=== PATIENT | female | born 1985 | race Caucasian/White ===

== ENCOUNTER 2016-12-14 14:47 | Inpatient (IN) | payer OTHER ==
[~2016-12-14] VITALS: Ht 165.1 cm; Wt 65.6 kg
[~2016-12-14 14:47] MED LIST: BNT10 PO; DFL100 PO; HYDR-4383 PO; PRT40 PO
[2016-12-14] MEDS ORDERED: HYDROmorphone INJ 0.5 MG/0.5 ML SYR IV STA (16:46)
[2016-12-14] MEDS ORDERED: PROCHLORPERAZINE 5 MG/ML 2 ML VIAL IV STA (16:46)
[2016-12-14] MEDS ORDERED: SODIUM CHLORIDE 0.9% 1000ML 1,000 ML IV STA (16:46)
[2016-12-14] MEDS ORDERED: DiphenhydrAMINE HCL 50 MG/ML VIAL IV STA (16:46)
[2016-12-14] MEDS ORDERED: ONDANSETRON INJ 2 MG/ML 2 ML VIAL IV STA ×2 (16:46→20:00)
[2016-12-14] MEDS ORDERED: SODIUM CHLORIDE 0.9% 1000ML 2,000 ML IV STA (16:46)
[2016-12-14] MEDS ORDERED: DEXAMETHASONE SOD INJ 10 MG/ML VIAL IV ONE (17:00)
[2016-12-14 17:41] LABS: BASO % 0.2 %; BASO ABS # 0.01 K/uL (0-0.2); COMPLETE YES; HEMATOCRIT 41.1 % (37-47); IG% 0.2 %; LYMPH % 9.7 %; LYMPH ABS # 0.57 K/uL (1.2-3.4); MEAN CELL VOLUME 87.4 fL (80-100); MEAN CORPUSCULAR HGB CONC 34.3 g/dl (32-36); MONO % 1.9 %; PLATELET COUNT 304 K/uL (130-400); WHITE BLOOD COUNT 5.88 K/uL (4.8-10.8)
[2016-12-14 18:00] LABS: ALT/SGPT 21 U/L (12-78); AMYLASE 55 U/L (25-115); BLOOD UREA NITROGEN 9 mg/dl (7-18); CALCIUM 9.8 mg/dl (8.5-10.1); CARBON DIOXIDE 24 mmol/L (21-32); CHLORIDE 106 mmol/L (98-107); CREATININE 0.77 mg/dl (0.60-1.20); GLUCOSE 112 mg/dl (70-99); MAGNESIUM 1.7 mg/dl (1.8-2.4); POTASSIUM 3.4 mmol/L (3.5-5.1); SODIUM 141 mmol/L (136-145)
[2016-12-14 18:04] LABS: ALKALINE PHOSPHATASE 74 U/L (45-117); AST/SGOT 16 U/L (15-37)
[2016-12-14 18:09] LABS: PREG INTERNAL NEGATIVE QC NEG CLEAR BACKGROUND; PREG INTERNAL POSITIVE QC POS CONTROL LINE
[2016-12-14] MEDS ORDERED: FAMOTIDINE 20MG/102 ML D5W IV STA (18:13)
[2016-12-14] MEDS ORDERED: HYDROmorphone INJ 1 MG/ML SYR IV STA ×2 (18:13→20:00)
--- NOTE | 2016-12-14 18:32 | DIAGNOSTIC IMAGING REPORT ---
ABDOMEN 2VIEW W/PA CHEST RTN CLINICAL HISTORY: abd pain, n/v pain COMPARISON STUDY: 09/24/2016 FINDINGS: Diffuse interstitial change throughout both hemithoraces. Microcystic changes also have been described previously with all findings considered stable compared to the prior exam. There is no evidence for superimposed infiltrate. Bowel pattern is nonobstructive. Patient status post cholecystectomy. IMPRESSION: 1. Chronic interstitial change throughout both hemithoraces. No change from the prior study. 2. Nonobstructive bowel pattern. Electronically signed by: Kareem Berg M.D. 12/14/2016 6:31 PM Dictated Date/Time: 12/14/2016 6:28 PM
[2016-12-14 19:33] LABS: MANUAL MICROSCOPIC REQUIRED? YES; URINE APPEARANCE CLEAR (CLEAR); URINE COLOR YELLOW; URINE NITRITE NEG (NEG); URINE PH 8.5 (4.5-7.5); URINE SPECIFIC GRAVITY 1.015 (1.000-1.030); UROBILINOGEN NEG (NEG)
[2016-12-14 19:43] LABS: REVIEW REQ? NO; SULFASALICYLIC ACID NEG (NEG); URINE BILIRUBIN NEG (NEG)
[2016-12-14 19:45] LABS: URINE BACTERIA NEG (NEG)
[2016-12-14 19:46] LABS: URINE MUCUS PRESENT (NONE PRSENT)
[2016-12-14 19:51] LABS: BENZODIAZEPINE, URINE NEG (NEG); COCAINE,URINE NEG (NEG); PHENCYCLIDINE, URINE NEG (NEG)
--- NOTE | 2016-12-14 21:22 | DIAGNOSTIC IMAGING REPORT ---
ABDOMEN AND PELVIS CT WITHOUT CONTRAST CT DOSE: 704.59 mGycm HISTORY: Hematuria hematuria TECHNIQUE: Multiaxial CT images of the abdomen and pelvis were performed without the use of intravenous and oral contrast according to the standard department stone protocol. COMPARISON STUDY: 08/29/2016 FINDINGS: Chronic bibasilar interstitial changes are noted. Configuration of liver spleen and pancreas are unremarkable. Prior cholecystectomy. Nonobstructing renal calcifications unchanged. No evidence for an obstructing urinary tract calculus. Nonobstructive bowel pattern. Normal appendix. Complex 3.5 cm right ovarian cyst. Uterus is anteflexed. Bladder is midline. There are no contained bladder calcifications. IMPRESSION: 1. Several nonobstructing renal calcifications bilaterally. 2. Nonobstructive bowel pattern. 3. 3.5 cm complex cyst of the right ovary. 4. Chronic bibasilar interstitial change. Electronically signed by: Kareem Berg M.D. 12/14/2016 9:21 PM Dictated Date/Time: 12/14/2016 9:17 PM
--- NOTE | 2016-12-14 22:08 | EMERGENCY ROOM VISIT NOTE ---
History First contact with patient: 16:31 Chief Complaint: ABDOMINAL PAIN Stated Complaint: ABD. PAIN, VOMITING, NEAR SYNCOPE Nursing Triage Summary: pt c/o abd pain started this am vomiting has been here for nessa waterman in past and was admitted History of Present Illness Patient is a 31-year-old white female who presents to the emergency department for evaluation of abdominal pain, nausea and vomiting that began acutely this morning. 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 She follows with pulmonology in [place]. Patient presents the emergency department complaining of the abrupt onset of diffuse abdominal pain. She reports associated nausea and multiple episodes of vomiting and now dry heaves. She was seen here last August for similar symptoms. She had multiple emergency department visits before she was admitted. She underwent a thorough workup at that time and was seen by gastroenterology in the hospital. She states that the medications that she was discharged to home on including Protonix and Bentyl "made her sick" and she is not presently taking anything for her present symptoms. She states that this is exactly the same as how she felt when she was in the emergency department last year. She reports severe stomach pain that she rates a 10/10. She reports that her menses are irregular and she last had a period about 2 weeks ago. She states that it was very heavy but she has not had a period for about 2 months prior. She actually reports feeling constipated and tried taking stool softeners but vomited them up. She has not experienced any diarrhea. She has not had a fever. She denies any sick contacts. Review of Systems Review of systems as per HPI. All other systems reviewed were negative. 10 systems reviewed. 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 See Problem List. Family History Diabetes mellitus FATHER Hypertension Kidney disease Kidney stones Social History Smoking Status: Current Every Day Smoker Alcohol Use: none Drug Use: none Marital Status: Housing Status: lives with family Occupation Status: unemployed Current/Historical Medications Scheduled Dicyclomine HCl (Dicyclomine HCl), 10 MG PO BID Pantoprazole (Pantoprazole Sodium), 40 MG PO BID Scheduled PRN Hydrocodone/Acetaminophen (Sunspot 10/325 Tab), 1 TAB PO TID PRN for Pain Allergies Coded Allergies: No Known Allergies (Unverified , 12/14/16) Physical Exam Vital Signs Date Time Temp Pulse Resp B/P Pulse Ox O2 Delivery O2 Flow Rate FiO2 12/14/16 22:39 74 16 117/74 99 12/14/16 20:16 54 16 117/78 98 12/14/16 19:00 74 14 110/62 97 12/14/16 17:00 124 26 124/84 12/14/16 15:37 125 20 132/90 96 Room Air 12/14/16 14:54 37.0 85 22 111/90 98 Room Air Physical Exam CONSTITUTIONAL: Patient is a thin, 31-year-old white female who is awake and alert and rolling around on the gurney in moderate distress due to her stated complaints. EYES: Pupils equal, round, reactive to light and accommodation. EOMs intact without nystagmus. Sclera are anicteric. ENT: Tympanic membranes intact, with normal landmarks. External canals are clear. Oral and nasopharynx are clear. Mucous membranes are moist, no lesions , tongue and gums appear normal. NECK: No bruits auscultated. Supple without lymphadenopathy. No thyromegaly. No meningeal signs. Full active range of motion without discomfort. CARDIOVASCULAR: Regular rate and rhythm, with normal S1 and S2, no murmur or gallop or rub is heard. No carotid bruits auscultated. No JVD. Peripheral pulses easy to palpable. RESPIRATORY: Breath sounds equal and clear to auscultation without wheezes, rales, or rhonchi heard. Full and equal chest expansion without accessory muscle use or retractions. GI: Bowel sounds are present. Abdomen is soft and diffusely tender to palpation , without localized tenderness. No guarding or rebound. No organomegaly. No pulsatile masses. MUSCULOSKELETAL: Full range of motion of extremities x 4 with good strength. No cyanosis, edema, joint tenderness or swelling. No deformity. INTEGUMENTARY: No lesions or rash, normal skin turgor. NEUROLOGICAL: Alert, oriented, and cooperative. Cranial nerves, sensation and strength grossly intact. Pupils round, equal, and react to light, EOMs are full. LYMPH: No lymphadenopathy. Medical Decision & Procedures ER Provider Diagnostic Interpretation: ABDOMEN AND PELVIS CT WITHOUT CONTRAST CT DOSE: 704.59 mGycm HISTORY: Hematuria hematuria TECHNIQUE: Multiaxial CT images of the abdomen and pelvis were performed without the use of intravenous and oral contrast according to the standard department stone protocol. COMPARISON STUDY: 08/29/2016 FINDINGS: Chronic bibasilar interstitial changes are noted. Configuration of liver spleen and pancreas are unremarkable. Prior cholecystectomy. Nonobstructing renal calcifications unchanged. No evidence for an obstructing urinary tract calculus. Nonobstructive bowel pattern. Normal appendix. Complex 3.5 cm right ovarian cyst. Uterus is anteflexed. Bladder is midline. There are no contained bladder calcifications. IMPRESSION: 1. Several nonobstructing renal calcifications bilaterally. 2. Nonobstructive bowel pattern. 3. 3.5 cm complex cyst of the right ovary. 4. Chronic bibasilar interstitial change. ABDOMEN 2VIEW W/PA CHEST RTN CLINICAL HISTORY: abd pain, n/v pain COMPARISON STUDY: 09/24/2016 FINDINGS: Diffuse interstitial change throughout both hemithoraces. Microcystic changes also have been described previously with all findings considered stable compared to the prior exam. There is no evidence for superimposed infiltrate. Bowel pattern is nonobstructive. Patient status post cholecystectomy. IMPRESSION: 1. Chronic interstitial change throughout both hemithoraces. No change from the prior study. 2. Nonobstructive bowel pattern. Laboratory Results 12/14/16 17:31 Red Blood Count 4.70, Mean Corpuscular Volume 87.4, Mean Corpuscular Hemoglobin 30.0, Mean Corpuscular Hemoglobin Concent 34.3, Mean Platelet Volume 10.0, Neutrophils (%) (Auto) 88.0, Lymphocytes (%) (Auto) 9.7, Monocytes (%) (Auto) 1.9, Eosinophils (%) (Auto) 0.0, Basophils (%) (Auto) 0.2, Neutrophils # (Auto) 5.18, Lymphocytes # (Auto) 0.57, Monocytes # (Auto) 0.11, Eosinophils # (Auto) 0.00, Basophils # (Auto) 0.01 12/14/16 17:31 Test 12/14/16 17:31 12/14/16 19:00 12/14/16 23:28 White Blood Count 5.88 K/uL (4.8-10.8) Red Blood Count 4.70 M/uL (4.2-5.4) Hemoglobin 14.1 g/dL (12.0-16.0) Hematocrit 41.1 % (37-47) Mean Corpuscular Volume 87.4 fL (80-100) Mean Corpuscular Hemoglobin 30.0 pg (25-34) Mean Corpuscular Hemoglobin Concent 34.3 g/dl (32-36) Platelet Count 304 K/uL (130-400) Mean Platelet Volume 10.0 fL (7.4-10.4) Neutrophils (%) (Auto) 88.0 % Lymphocytes (%) (Auto) 9.7 % Monocytes (%) (Auto) 1.9 % Eosinophils (%) (Auto) 0.0 % Basophils (%) (Auto) 0.2 % Neutrophils # (Auto) 5.18 K/uL (1.4-6.5) Lymphocytes # (Auto) 0.57 K/uL (1.2-3.4) Monocytes # (Auto) 0.11 K/uL (0.11-0.59) Eosinophils # (Auto) 0.00 K/uL (0-0.5) Basophils # (Auto) 0.01 K/uL (0-0.2) RDW Standard Deviation 42.8 fL (36.4-46.3) RDW Coefficient of Variation 13.3 % (11.5-14.5) Immature Granulocyte % (Auto) 0.2 % Immature Granulocyte # (Auto) 0.01 K/uL (0.00-0.02) Anion Gap 11.0 mmol/L (3-11) Est Creatinine Clear Calc Drug Dose 97.0 ml/min Estimated GFR () 120.9 Estimated GFR (Non- 104.3 BUN/Creatinine Ratio 11.0 (10-20) Calcium Level 9.8 mg/dl (8.5-10.1) Magnesium Level 1.7 mg/dl (1.8-2.4) Total Bilirubin 0.3 mg/dl (0.2-1) Direct Bilirubin < 0.1 mg/dl (0-0.2) Aspartate Amino Transf (AST/SGOT) 16 U/L (15-37) Alanine Aminotransferase (ALT/SGPT) 21 U/L (12-78) Alkaline Phosphatase 74 U/L (45-117) Total Protein 8.6 gm/dl (6.4-8.2) Albumin 4.6 gm/dl (3.4-5.0) Amylase Level 55 U/L (25-115) Lipase 137 U/L (73-393) Human Chorionic Gonadotropin, Qual NEG (NEG) Urine Color YELLOW Urine Appearance CLEAR (CLEAR) Urine pH 8.5 (4.5-7.5) Urine Specific [place] 1.015 (1.000-1.030) Urine Protein NEG (NEG) Urine Glucose (UA) NEG (NEG) Urine Ketones 3+ (NEG) Urine Occult Blood 2+ (NEG) Urine Nitrite NEG (NEG) Urine Bilirubin NEG (NEG) Urine Urobilinogen NEG (NEG) Urine Leukocyte Esterase NEG (NEG) Urine RBC 10-30 /hpf (0-4) Urine WBC 1-5 /hpf (0-5) Urine Epithelial Cells >30 /lpf (0-5) Urine Bacteria NEG (NEG) Urine Mucus PRESENT (NONE PRSENT) Urine Opiates Screen POS (NEG) Urine Methadone, Qualitative NEG (NEG) Urine Barbiturates NEG (NEG) Urine Phencyclidine (PCP) Level NEG (NEG) Ur Amphetamine/Methamphetamine NEG (NEG) MDMA (Ecstasy) Screen NEG (NEG) Urine Benzodiazepines Screen NEG (NEG) Urine Cocaine Metabolite NEG (NEG) Urine Marijuana (THC) NEG (NEG) Medications Administered Medications (Trade) Dose Ordered Sig/Husam Route Start Time Stop Time Status Last Admin Dose Admin Sodium Chloride 2,000 ml @ 999 mls/hr Q2H1M STAT IV 12/14/16 16:46 12/14/16 18:46 DC 12/14/16 17:07 999 MLS/HR Sodium Chloride (Nss 1000ml) 1,000 ml @ 250 mls/hr Q4H STAT IV 12/14/16 16:46 12/14/16 20:45 DC 12/14/16 18:06 250 MLS/HR Prochlorperazine Edisylate (Compazine Inj) 10 mg NOW STAT IV 12/14/16 16:46 12/14/16 16:49 DC 12/14/16 17:07 10 MG Diphenhydramine HCl (Benadryl Inj) 50 mg NOW STAT IV 12/14/16 16:46 12/14/16 16:49 DC 12/14/16 17:07 50 MG Ondansetron HCl (Zofran Inj) 4 mg NOW STAT IV 12/14/16 16:46 12/14/16 16:50 DC 12/14/16 17:06 4 MG Dexamethasone Sodium Phosphate (Decadron Inj) 10 mg NOW ONCE IV 12/14/16 17:00 12/14/16 17:01 DC 12/14/16 17:07 10 MG Hydromorphone HCl (Dilaudid Inj) 0.5 mg NOW STAT IV 12/14/16 16:46 12/14/16 16:50 DC 12/14/16 17:10 0.5 MG Hydromorphone HCl (Dilaudid Inj) 1 mg NOW STAT IV 12/14/16 18:13 12/14/16 18:16 DC 12/14/16 18:28 1 MG Famotidine (Pepcid 20mg/100 ml) 20 mg ONE STAT IV 12/14/16 18:13 12/14/16 18:16 DC 12/14/16 18:29 20 MG Ondansetron HCl (Zofran Inj) 4 mg NOW STAT IV 12/14/16 20:00 12/14/16 20:01 DC 12/14/16 20:14 4 MG Hydromorphone HCl (Dilaudid Inj) 1 mg NOW STAT IV 12/14/16 20:00 12/14/16 20:01 DC 12/14/16 20:15 1 MG ED Course The patient was seen and evaluated as above. Her old records were reviewed, including her admission from last year. I am familiar with from prior ED visits. IV access was obtained and laboratory studies were collected. Patient was hydrated with normal saline solution. She was initially medicated with Compazine 10 mg IV, Benadryl 50 mg IV, Zofran 4 mg IV, Decadron 10 mg IV and Dilaudid 0.5 mg IV. She later complained of ongoing discomfort and was given Pepcid 20 mg IV and Dilaudid 1 mg IV. CBC with differential, BMP, magnesium, LFTs, amylase, lipase, urinalysis and urine test were ordered. Acute abdominal series was obtained. Laboratory studies revealed a white count of 5800 with no left shift or bandemia. H&H 14 and 41. Platelet count 304,000. Electrolytes revealed a sodium of 141, potassium 3.4, chloride 106, carbon dioxide 24, BUN 9 and creatinine 0.77. Magnesium is 1.7. LFTs, amylase and lipase are within normal limits. Serum hCG is negative. Urinalysis notes 3+ ketones, 2+ occult blood and 10-30 rbc's with greater than 30 epithelial cells. There are no other indicators for infection including white blood cells, leukocyte esterase or nitrates. No bacteria. Urine toxicology screen is positive for opioids, consistent with her hydrocodone use. The patient was reassessed and made aware of the results of all of her laboratory and diagnostic imaging studies. Her mother was present at the bedside as well. She continued to note pain and return of her nausea. She was given Dilaudid 1 mg IV and Zofran 4 mg IV. Given the hematuria, CT scan of the abdomen and pelvis without contrast was ordered. CT noted a right ovarian cyst , otherwise no acute abdominal pathology. The patient was reassessed. She appeared to be resting comfortably on the gurney, and reported feeling tired from the medication. The results of her CT scan were discussed with her and her mother. Treatment options were discussed. The patient became tearful and began to report worsening pain. She states that she does not feel well enough to go home. She is afraid if she does she will have to come back like she did last year. Patient was reviewed with the refractory manager and consultation was placed with the [facility] hospitalist service. Patient was reviewed with Dr. Pike who will evaluate her for further care in the hospital. Medical Decision Differential diagnoses entertained included gastritis, esophagitis, peptic ulcer disease, pancreatitis, choledocholithiasis, bowel obstruction, perforation , medication side effect, cyclic vomiting syndrome, UTI, pyelonephritis, ovarian cyst, ovarian torsion, , ectopic , among others. [place] Drug Monitoring Program Search Results: patient reviewed within database Drug Monitoring Findings: Receives regular Sunspot prescriptions from pain management as discussed. Impression Primary Impression: Intractable abdominal pain Additional Impressions: Vomiting Right ovarian cyst Departure Information Referrals No Doctor, Assigned (PCP) Patient Instructions [facility] Problem Qualifiers
--- NOTE | 2016-12-14 23:06 | History and Physical ---
History & Physical Date & Time of Service: Dec 14, 2016 at 22:51 Chief Complaint: Abd. Pain, Vomiting, Near Syncope Primary Care Physician: No Doctor, Assigned History of Present Illness Source: patient 31 y/o F Hx Langerhan's Histiocytosis affecting her lungs only, renal calculi, chronic lower back and abdominal pain of unknown etiology. She is narcotic- dependent and has presented multiple times with intractable lower abdominal pain , and intractable N/V which she has had for the past 2 days. She denies a fever , CP, SOB, dysuria. The pain is largely in her lower abdomen and back, described as persistent and 8/10. She received several doses of narcotics and antiemetics in the ER without resolution. She also describes gross hematuria for a few weeks. She had her last menstrual period 2 weeks prior. Past Medical/Surgical History Medical Problems: (1) Anxiety and depression Status: Chronic (2) Chronic gastritis Status: Chronic (3) Chronic low back pain Status: Chronic (4) Duodenal ulcer disease Status: Chronic (5) Kidney stones Status: Resolved (6) Langerhans cell histiocytosis Status: Chronic (7) Langerhans cell histiocytosis of lung Status: Chronic (8) Peptic ulcer disease Status: Chronic (9) Reflux esophagitis Status: Chronic 10) Narcotic-dependence 11) Tobacco abuse Surgical Problems: (1) H/O esophagogastroduodenoscopy Permanent Comment: 03/10/16 at [facility]- chronic gastritis, grade A reflux esophagitis, acute duodenitis with superficial ulceration Status: Chronic (2) History of section Status: Resolved (3) History of cholecystectomy Status: Resolved (4) History of lung biopsy Status: Chronic (5) History of tubal ligation Status: Resolved (6) S/P section Status: Chronic (7) S/P cholecystectomy Status: Chronic Family History Diabetes mellitus FATHER Hypertension Kidney disease Kidney stones Social History Smoking Status: Current Every Day Smoker Drug Use: none Marital Status: Housing status: lives with family Occupational Status: unemployed Allergies Coded Allergies: No Known Allergies (Unverified , 12/14/16) Home Medications Scheduled Dicyclomine HCl (Dicyclomine HCl), 10 MG PO BID Pantoprazole (Pantoprazole Sodium), 40 MG PO BID Scheduled PRN Hydrocodone/Acetaminophen ([place] 10/325 Tab), 1 TAB PO TID PRN for Pain Review of Systems Constitutional: No chills, No fever, No sweats Eyes: No eye pain, No worsening of vision ENT: No hearing loss, No nasal symptoms, No unusual epistaxis Respiratory: No cough, No sputum, No wheezing Cardiovascular: No PND, No chest pain, No orthopnea Abdomen: + nausea, + pain, + vomiting, No constipation, No diarrhea Musculoskeletal: + joint pain, + muscle pain Genitourinary - Female: + hematuria, No dysuria, No urinary frequency, No urinary urgency Neurologic: No memory loss, No paralysis, No weakness Psychiatric: + depression symptoms Endocrine: No fatigue Hematologic / Lymphatic: No abnormal bleeding/bruising Integumentary: No rash Allergic / Immunologic: No environmental allergies Physical Exam Vital Signs Date Time Temp Pulse Resp B/P Pulse Ox O2 Delivery O2 Flow Rate FiO2 12/14/16 22:39 74 16 117/74 99 12/14/16 20:16 54 16 117/78 98 12/14/16 19:00 74 14 110/62 97 12/14/16 17:00 124 26 124/84 12/14/16 15:37 125 20 132/90 96 Room Air 12/14/16 14:54 37.0 85 22 111/90 98 Room Air General Appearance: WD/WN, no apparent distress Head: normocephalic, atraumatic Eyes: normal inspection, EOMI ENT: normal ENT inspection, pharynx normal Neck: supple, no JVD Respiratory/Chest: chest non-tender, lungs clear, normal breath sounds Cardiovascular: regular rate, rhythm, no edema, no gallop Back: normal inspection, no CVA tenderness Extremities/Musculoskelatal: normal inspection, no calf tenderness, normal capillary refill, no pedal edema, normal range of motion Neurologic/Psych: insurance risk manager II-XII nml as tested, no motor/sensory deficits, alert, normal mood/affect, normal reflexes, oriented x 3 Skin: normal color, warm/dry, no rash Diagnostics Laboratory Results Results Past 24 Hours Test 12/14/16 17:31 12/14/16 19:00 Range/Units White Blood Count 5.88 4.8-10.8 K/uL Red Blood Count 4.70 4.2-5.4 M/uL Hemoglobin 14.1 12.0-16.0 g/dL Hematocrit 41.1 37-47 % Mean Corpuscular Volume 87.4 80-100 fL Mean Corpuscular Hemoglobin 30.0 25-34 pg Mean Corpuscular Hemoglobin Concent 34.3 32-36 g/dl Platelet Count 304 130-400 K/uL Mean Platelet Volume 10.0 7.4-10.4 fL Neutrophils (%) (Auto) 88.0 % Lymphocytes (%) (Auto) 9.7 % Monocytes (%) (Auto) 1.9 % Eosinophils (%) (Auto) 0.0 % Basophils (%) (Auto) 0.2 % Neutrophils # (Auto) 5.18 1.4-6.5 K/uL Lymphocytes # (Auto) 0.57 1.2-3.4 K/uL Monocytes # (Auto) 0.11 0.11-0.59 K/uL Eosinophils # (Auto) 0.00 0-0.5 K/uL Basophils # (Auto) 0.01 0-0.2 K/uL RDW Standard Deviation 42.8 36.4-46.3 fL RDW Coefficient of Variation 13.3 11.5-14.5 % Immature Granulocyte % (Auto) 0.2 % Immature Granulocyte # (Auto) 0.01 0.00-0.02 K/uL Sodium Level 141 136-145 mmol/L Potassium Level 3.4 3.5-5.1 mmol/L Chloride Level 106 98-107 mmol/L Carbon Dioxide Level 24 21-32 mmol/L Anion Gap 11.0 3-11 mmol/L Blood Urea Nitrogen 9 7-18 mg/dl Creatinine 0.77 0.60-1.20 mg/dl Est Creatinine Clear Calc Drug Dose 97.0 ml/min Estimated GFR () 120.9 Estimated GFR (Non- 104.3 BUN/Creatinine Ratio 11.0 10-20 Random Glucose 112 70-99 mg/dl Calcium Level 9.8 8.5-10.1 mg/dl Magnesium Level 1.7 1.8-2.4 mg/dl Total Bilirubin 0.3 0.2-1 mg/dl Direct Bilirubin < 0.1 0-0.2 mg/dl Aspartate Amino Transf (AST/SGOT) 16 15-37 U/L Alanine Aminotransferase (ALT/SGPT) 21 12-78 U/L Alkaline Phosphatase 74 45-117 U/L Total Protein 8.6 6.4-8.2 gm/dl Albumin 4.6 3.4-5.0 gm/dl Amylase Level 55 25-115 U/L Lipase 137 73-393 U/L Human Chorionic Gonadotropin, Qual NEG NEG Urine Color YELLOW Urine Appearance CLEAR CLEAR Urine pH 8.5 4.5-7.5 Urine Specific [place] 1.015 1.000-1.030 Urine Protein NEG NEG Urine Glucose (UA) NEG NEG Urine Ketones 3+ NEG Urine Occult Blood 2+ NEG Urine Nitrite NEG NEG Urine Bilirubin NEG NEG Urine Urobilinogen NEG NEG Urine Leukocyte Esterase NEG NEG Urine RBC 10-30 0-4 /hpf Urine WBC 1-5 0-5 /hpf Urine Epithelial Cells >30 0-5 /lpf Urine Bacteria NEG NEG Urine Mucus PRESENT NONE PRSENT Urine Opiates Screen POS NEG Urine Methadone, Qualitative NEG NEG Urine Barbiturates NEG NEG Urine Phencyclidine (PCP) Level NEG NEG Ur Amphetamine/Methamphetamine NEG NEG MDMA (Ecstasy) Screen NEG NEG Urine Benzodiazepines Screen NEG NEG Urine Cocaine Metabolite NEG NEG Urine Marijuana (THC) NEG NEG Diagnostic Radiology CT abdomen 1. Several nonobstructing renal calcifications bilaterally. 2. Nonobstructive bowel pattern. 3. 3.5 cm complex cyst of the right ovary. 4. Chronic bibasilar interstitial change. Impression Assessment and Plan 31 y/o F Hx Langertong's Histiocytosis affecting her lungs only, renal calculi, chronic lower back and abdominal pain of unknown etiology. She is narcotic- dependent and has presented multiple times with intractable lower abdominal pain , and intractable N/V which she has had for the past 2 days. She denies a fever , CP, SOB, dysuria. The pain is largely in her lower abdomen and back, described as persistent and 8/10. She received several doses of narcotics and antiemetics in the ER without resolution. She also describes gross hematuria for a few weeks. She had her last menstrual period 2 weeks prior. 1) Intractable nausea, vomiting - placed on scheduled Reglan and Zofran for breakthrough - IVF - NPO 2) Intractable abdominal pain - Converted home dose of [place] - pain is acute on chronic without etiology 3) Hematuria - She has several renal calculi without evidence of obstruction or infection - she should likely be referred to a urologist on discharge 4) Langerhan's - followed at [facility] 5) HypoMg, HypoK - stat replacement ordered 6) Narcotic dependence - I can see no clear reason for this young, essentially healthy individual to continue narcotic use and in fact this may be detrimental. This should likely be addressed prior to D/C. Per review of pharmacy records, she has a standing monthly Rx for 90 10.325 [place] so that no additional should be prescribed on D/C. 7) Tobacco abuse - Cessation advice prior to D/C - does not necessarily show interest. Full code - SCDs due to hematuria Total time for this admit including review of labs, meds, imaging - discussion with ER attending and pt. Level of Care Med/Surg Resuscitation Status FULL RESUSCITATION VTE Prophylaxis Given or contraindicated: SCD's
[2016-12-14] MEDS ORDERED: ACETAMINOPHEN 325 MG TAB PO PRN (23:30)
[2016-12-14] MEDS ORDERED: ZOLPIDEM TARTRATE 5 MG TAB PO PRN (23:30)
[2016-12-14] MEDS ORDERED: MoRPHine SULFATE 4 MG/ML 1 ML CARP\\VIAL IV PRN (23:30)
[2016-12-14] MEDS ORDERED: MAGNESIUM HYDROXIDE SUSP 30 ML UDC PO PRN (23:30)
[2016-12-14] MEDS ORDERED: POLYETHYLENE (MIRALAX) 17 GM PACK PO PRN (23:30)
[2016-12-14] MEDS ORDERED: MAGNESIUM SULFATE 1GM / D5W 1 GM in PREMIXED IN D5W 100 ML IV STA (23:33)
[2016-12-15] MEDS ORDERED: MAGNESIUM SULFATE 1GM / D5W 1 GM BAG IV SCH
[2016-12-15 00:41] VITALS: BP 130/67; PULSE 61; TEMP 37.5; O2SAT 94; Ht 165.1 cm; Wt 65.6 kg
[2016-12-15] MEDS ORDERED: IV FLUIDS COMPLETED PRN (01:30)
[2016-12-15] MEDS: ONDANSETRON INJ 2 MG/ML 2 ML VIAL IV PRN ×2 (01:34→13:43)
[2016-12-15] MEDS: D5NSS + 20MEQ KCL 1,000 ML IV SCH ×4 (02:09→22:06)
[2016-12-15] MEDS: POTASSIUM CHLR 10 MEQ / WTR 10 MEQ in PREMIXED WATER 100 ML IV SCH ×2 (02:09→03:22)
[2016-12-15] MEDS: METOCLOPRAMIDE HCL INJ 5 MG/ML 2 ML VIAL IV SCH ×3 (03:22→18:26)
[2016-12-15] MEDS: ALUMINUM/MAGNESIUM/SIMETH (MAALOX MAX) 30 ML UDC PO PRN (04:40)
[2016-12-15 07:13] LABS: BUN/CREATININE RATIO 13.4 (10-20); CREATININE 0.64 mg/dl (0.60-1.20); MAGNESIUM 2.2 mg/dl (1.8-2.4); POTASSIUM 3.7 mmol/L (3.5-5.1)
[2016-12-15 07:19] VITALS: BP 114/73; PULSE 99; TEMP 37.8; O2SAT 98
[2016-12-15 07:55] VITALS: TEMP 37
[2016-12-15] MEDS ORDERED: MoRPHine SULFATE 4 MG/ML 1 ML CARP\\VIAL ONE (09:27)
[2016-12-15] MEDS: DICYCLOMINE HCL 10 MG CAP PO SCH ×2 (10:04→22:05)
[2016-12-15] MEDS: PANTOprazole SOD 40 MG TAB PO SCH ×2 (10:05→22:05)
[2016-12-15] MEDS ORDERED: MoRPHine SULFATE 4 MG/ML 1 ML CARP\\VIAL IV PRN (12:00)
[2016-12-15] MEDS: MoRPHine SULFATE 4 MG/ML 1 ML CARP\\VIAL IV PRN ×4 (13:44→22:06)
--- NOTE | 2016-12-15 14:11 | Family Medicine Progress Note ---
Progress Note Date of Service Dec 15, 2016. Subjective Pt evaluation today including: conversation w/ patient, physical exam, chart review, lab review, review of studies Pain: 05/07 Voiding: no voiding problems Patient has ongoing pain We did discuss that at [facility] the patient does have this pain after every meal but it is usually very limited however this is now her second bout of acute on chronic abd pain requiring admission They did discuss a scope however she stated that it never was done and she would like that if possible Hematuria is ongoing but now light pink in colour Constitutional: No fever Eyes: No worsening of vision ENT: No hearing loss Respiratory: No cough, No dyspnea on exertion, No shortness of breath, No sputum, No wheezing Cardiovascular: No chest pain Abdomen: + pain, No constipation, No diarrhea, No nausea, No vomiting Musculoskeletal: No joint pain, No muscle pain, No swelling Female : + hematuria, No dysuria Neurologic: No balance problems, No weakness Psychiatric: + anxiety Endo: No fatigue Medications Medications Administered Medications (Trade) Dose Ordered Sig/Husam Route Start Time Stop Time Status Last Admin Dose Admin Sodium Chloride 2,000 ml @ 999 mls/hr Q2H1M STAT IV 12/14/16 16:46 12/14/16 18:46 DC 12/14/16 17:07 999 MLS/HR Sodium Chloride (Nss 1000ml) 1,000 ml @ 250 mls/hr Q4H STAT IV 12/14/16 16:46 12/14/16 20:45 DC 12/14/16 18:06 250 MLS/HR Prochlorperazine Edisylate (Compazine Inj) 10 mg NOW STAT IV 12/14/16 16:46 12/14/16 16:49 DC 12/14/16 17:07 10 MG Diphenhydramine HCl (Benadryl Inj) 50 mg NOW STAT IV 12/14/16 16:46 12/14/16 16:49 DC 12/14/16 17:07 50 MG Ondansetron HCl (Zofran Inj) 4 mg NOW STAT IV 12/14/16 16:46 12/14/16 16:50 DC 12/14/16 17:06 4 MG Dexamethasone Sodium Phosphate (Decadron Inj) 10 mg NOW ONCE IV 12/14/16 17:00 12/14/16 17:01 DC 12/14/16 17:07 10 MG Hydromorphone HCl (Dilaudid Inj) 0.5 mg NOW STAT IV 12/14/16 16:46 12/14/16 16:50 DC 12/14/16 17:10 0.5 MG Hydromorphone HCl (Dilaudid Inj) 1 mg NOW STAT IV 12/14/16 18:13 12/14/16 18:16 DC 12/14/16 18:28 1 MG Famotidine (Pepcid 20mg/100 ml) 20 mg ONE STAT IV 12/14/16 18:13 12/14/16 18:16 DC 12/14/16 18:29 20 MG Ondansetron HCl (Zofran Inj) 4 mg NOW STAT IV 12/14/16 20:00 12/14/16 20:01 DC 12/14/16 20:14 4 MG Hydromorphone HCl (Dilaudid Inj) 1 mg NOW STAT IV 12/14/16 20:00 12/14/16 20:01 DC 12/14/16 20:15 1 MG Dicyclomine HCl (Bentyl Cap) 10 mg BID PO 12/15/16 09:00 01/14/17 08:59 12/15/16 10:04 10 MG Pantoprazole Sodium (Protonix Tab) 40 mg BID PO 12/15/16 09:00 01/14/17 08:59 12/15/16 10:05 40 MG Morphine Sulfate (MoRPHine SULFATE INJ) 4 mg Q8H PRN IV 12/14/16 23:30 12/15/16 08:58 DC 12/15/16 01:34 4 MG Metoclopramide HCl (Reglan Inj) 5 mg Q8H IV 12/15/16 02:00 01/14/17 01:59 12/15/16 09:33 5 MG Al Hydrox/Mg Hydrox/Simethicone (Maalox Max Susp) 15 ml Q4H PRN PO 12/14/16 23:30 01/13/17 23:29 12/15/16 04:40 15 ML Ondansetron HCl 4 mg 4 mg Q6H PRN IV 12/14/16 23:30 01/13/17 23:29 12/15/16 13:43 4 MG Potassium Chloride/Dextrose/ Sod Cl 1,000 ml @ 150 mls/hr Q6H40M IV 12/15/16 02:15 01/14/17 02:14 12/15/16 09:33 150 MLS/HR Potassium Chloride/Prmx (Kcl 10 Meq / Wtr/Premixed Water) 100 ml @ 100 mls/hr Q1H IV 12/15/16 02:00 12/15/16 03:59 DC 12/15/16 03:22 100 MLS/HR Magnesium Sulfate (Magnesium Sulfate) 1 gm TODAY@0000 IV 12/15/16 00:00 12/15/16 02:00 DC 12/15/16 00:20 1 GM Morphine Sulfate (MoRPHine SULFATE INJ) 4 mg Q2H PRN IV 12/15/16 12:00 12/29/16 11:59 12/15/16 13:44 4 MG Morphine Sulfate (MoRPHine SULFATE INJ) 4 mg STK-MED ONCE .ROUTE 12/15/16 09:27 12/15/16 09:31 DC 12/15/16 09:33 4 MG Objective Vital Signs Date Time Temp Pulse Resp B/P Pulse Ox O2 Delivery O2 Flow Rate FiO2 12/15/16 07:55 Room Air 12/15/16 07:55 37.0 12/15/16 07:19 37.8 99 16 114/73 98 Room Air 12/15/16 00:41 37.5 61 20 130/67 94 Room Air 12/15/16 00:30 Room Air 12/15/16 00:21 94 18 142/80 94 12/14/16 22:39 74 16 117/74 99 12/14/16 20:16 54 16 117/78 98 12/14/16 19:00 74 14 110/62 97 12/14/16 17:00 124 26 124/84 12/14/16 15:37 125 20 132/90 96 Room Air 12/14/16 14:54 37.0 85 22 111/90 98 Room Air Physical Exam General Appearance: WD/WN, no apparent distress Assessment and Plan This is a 31 yo f with a 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 She is narcotic-dependent and has presented multiple times with intractable lower abdominal pain, and intractable N/V which she has had for 2 days prior to admission. She was also suffering from hematuria which she states she will gets occasionally and will worsen when she strains. Acute on chronic abdominal pain of unknown etiology; intractable N&V - Morphine 4 mg q2 h - Zofran for nausea and scheduled Reglan - IVF and NPO - GI consult Hematuria possibly secondary to nephrolithiasis - consult urology - follow bmp hypomagnesemia, hypokalemia replete prn Narcotic dependence PDMP reviewed - approx one rx for narcotics/ month - no rx on d/c Tobacco abuse - continue to encourage d/c tobacco use Resident Physician Supervision Note: I interviewed and examined the patient. Discussed with Dr. Devi and agree with findings and plan as documented in the note. Any exceptions or clarifications are listed here: None Documented By: Felice Mc feeling aboutthe same. saw w GI - for EGD tomorrow vitals noted, abd soft epigastric ttp no guarding no rebound epigastric pain, nausea - ddx being viral GE (since acute onset, not been chronic since last) vs gastritis/stomach pathology -EGD tomororw, continue supportive care, otherwise as above Continued [facility] stay due to: other Discharge planning: uncertain
[2016-12-15 15:10] VITALS: BP 112/64; PULSE 61; TEMP 36.9; O2SAT 98
[2016-12-15] MEDS ORDERED: NURSING VERBAL MED ORDER PRN (16:45)
[2016-12-15] MEDS: LORAZEPAM 0.5 MG TAB PO PRN ×2 (16:49→22:06)
--- NOTE | 2016-12-15 17:54 | GASTROINTESTINAL CONSULTATION ---
DATE OF CONSULTATION: 12/15/2016 REASON FOR EVALUATION: Epigastric pain, nausea, and vomiting. HISTORY OF PRESENT ILLNESS: The patient is a 31-year-old who was hospitalized previously in August with similar symptoms. The patient reports at this time she woke up at 3 in the morning with severe epigastric abdominal pain which she rated as a 10/10. This was associated with nausea and vomiting. The night before, the patient was having some problems with constipation and eventually passed a hard stool, was associated with some bright red bleeding probably hemorrhoidal. The patient did have an EGD in [place] in February that showed some mild esophagitis and gastritis but no other abnormalities. She does take chronic narcotics for back pain associated with her Langerhans histiocytosis. During her last hospitalization, the patient underwent a stool test for rotavirus, C. diff, fecal leukocytes, routine bacterial pathogens, Giardia, all of which were negative. Stool for H. pylori was negative and her tissue transglutaminase for celiac disease was negative. PAST MEDICAL AND SURGICAL HISTORY: Remarkable for Langerhans histiocytosis predominantly involving the lungs. She has some anxiety, chronic low back pain, kidney stones. She has had a cholecystectomy and tubal ligation and 3 C-sections. FAMILY HISTORY: Positive for diabetes, hypertension and kidney stones. SOCIAL HISTORY: The patient is . She has 3 children. She is a homemaker. Smokes every day. MEDICATIONS: Dicyclomine, pantoprazole, and [place]. ALLERGIES: None. REVIEW OF SYSTEMS: Positive for epigastric pain, nausea, vomiting, and depression. Remainder is negative. PHYSICAL EXAMINATION: GENERAL: The patient appears in no acute distress. VITAL SIGNS: Blood pressure is 117/74, pulse 74, respirations 16, pulse ox 99% on room air. ABDOMEN: Shows low transverse scar, tattoo star in the right lower quadrant, some central abdominal stretch duffy, naval piercing scar, and laparoscopic cholecystectomy scars. Bowel sounds are hypoactive. There is tenderness in the epigastric area to deep palpation. There is some palpable stool in the sigmoid colon in the left lower quadrant. LABORATORY: Shows normal CBC, normal liver profile, normal amylase and lipase. IMPRESSION AND PLAN: The patient has acute onset epigastric pain, nausea, and vomiting, which I think is most likely infectious in etiology. The last time she was hospitalized, it turned out that she most likely had a viral gastroenteritis. She does have 3 young children that attempt to bring various infections home. I plan on scheduling her for an EGD tomorrow to make sure she does not have an ulcer or other potential pathology that could be causing her symptoms that is negative, then probably conservative treatment would be recommended.
[2016-12-15 23:47] VITALS: BP 95/55; PULSE 47; TEMP 36.6; O2SAT 95
[2016-12-16] VITALS (7 sets, daily range): BP systolic 98–127; BP diastolic 62–80; PULSE 47–79; TEMP 36.5–37.2; O2SAT 93–99
[2016-12-16] MEDS: METOCLOPRAMIDE HCL INJ 5 MG/ML 2 ML VIAL IV SCH ×3 (01:49→18:44)
[2016-12-16] MEDS: D5NSS + 20MEQ KCL 1,000 ML IV SCH ×3 (04:14→19:44)
[2016-12-16] MEDS: MoRPHine SULFATE 4 MG/ML 1 ML CARP\\VIAL IV PRN ×6 (04:14→22:45)
--- NOTE | 2016-12-16 08:24 | Urology Consultation ---
History General Date of Service: Dec 16, 2016. Chief Complaint: hematuria Primary Care Physician: No Doctor, Assigned History of Present Illness 31 yo female with a hx of chronic low back pain and langernhan's cell histiocytosis presents to [facility] with c/o low back pain. consulted for hematuria. The pt reports a hx of blood in the toilet for several weeks. She reports she felt this was coming from BMs rather than her urine. UA on admission does show hematuria. She denies any dysuria. CT scan shows some small bilateral stones, but no hydro or evidence renal masses noted on this non-contrast film. She reports she was aware of the stones , but has never passed one. She does have a hx of smoking daily. Imaging Imaging: CT Laboratory Labs were reviewed and are within normal limits unless listed below. Labs are available in the chart and at 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 (10) Left flank pain Status: Acute (11) Ovarian cyst Status: Acute (12) Ovarian cyst, complex Status: Acute (13) Peptic ulcer disease Status: Chronic (14) Right ovarian cyst Status: Acute (15) Vomiting Status: Acute (16) Vomiting Status: Acute Past History anxiety, depression, GERD, kidney stones, other (langerhans cell histiocytosis, chronic gastritis with hx of peptic and duodenal ulcers, chronic low back pain, hx of naroctic dependence) Past Surgical History: , cholecystectomy, EGD, tubal ligation, other ( lung bx ) Family History Diabetes mellitus FATHER Hypertension Kidney disease Kidney stones Social History Hx Tobacco Use In Past Year?: Yes Smoking: other (current everyday smoker) Drug use: other (hx of narcotic dependence) Marital status: Housing status: lives with family Occupation status: unemployed Allergies Coded Allergies: No Known Allergies (Unverified , 12/14/16) Medications Home Medications: Home Meds and Scripts Medications Dose Route/Sig Max Daily Dose Days Date Category Pantoprazole Sodium (Pantoprazole) 40 Mg Tab 40 Mg PO BID 30 08/28/16 Rx Dicyclomine HCl 10 Mg Cap 10 Mg PO BID 30 08/28/16 Rx [place] 10/325 Tab (Acetaminophen/Hydrocodone Bitart) 1 Tab Tab 1 Tab PO TID PRN 08/27/16 Reported Inpatient Medications: Current Inpatient Medications Medications (Trade) Dose Ordered Sig/Husam Route Start Time Stop Time Status Last Admin Dose Admin Dicyclomine HCl (Bentyl Cap) 10 mg BID PO 12/15/16 09:00 01/14/17 08:59 12/15/16 22:05 10 MG Pantoprazole Sodium (Protonix Tab) 40 mg BID PO 12/15/16 09:00 01/14/17 08:59 12/15/16 22:05 40 MG Metoclopramide HCl (Reglan Inj) 5 mg Q8H IV 12/15/16 02:00 01/14/17 01:59 12/16/16 01:49 5 MG Acetaminophen (Tylenol Tab) 650 mg Q4H PRN PO 12/14/16 23:30 01/13/17 23:29 Al Hydrox/Mg Hydrox/Simethicone (Maalox Max Susp) 15 ml Q4H PRN PO 12/14/16 23:30 01/13/17 23:29 12/15/16 04:40 15 ML Magnesium Hydroxide (Milk Of Magnesia Susp) 30 ml Q6H PRN PO 12/14/16 23:30 01/13/17 23:29 Polyethylene (Miralax Powder Packet) 17 gm DAILY PRN PO 12/14/16 23:30 01/13/17 23:29 Zolpidem Tartrate (Ambien Tab) 5 mg HSZ PRN PO 12/14/16 23:30 01/13/17 23:29 Ondansetron HCl 4 mg 4 mg Q6H PRN IV 12/14/16 23:30 01/13/17 23:29 12/15/16 13:43 4 MG Potassium Chloride/Dextrose/ Sod Cl (D5nss + 20meq KCl) 1,000 ml @ 150 mls/hr Q6H40M IV 12/15/16 02:15 01/14/17 02:14 12/16/16 04:14 150 MLS/HR Miscellaneous (Iv Fluids Completed) 1 ea PRN PRN N/A 12/15/16 01:30 12/15/17 01:29 Morphine Sulfate (MoRPHine SULFATE INJ) 4 mg Q2H PRN IV 12/15/16 12:00 12/29/16 11:59 12/16/16 04:14 4 MG Lorazepam (Ativan Tab) 0.5 mg Q4H PRN PO 12/15/16 16:45 01/14/17 16:44 12/15/16 22:06 0.5 MG Review of Systems Review of Systems Constitutional: No chills, No fever Eyes: No double vision Neurological: No dizzy Endocrine: No excessive thirst Gastrointestinal: No abdominal pain, No nausea, No vomiting Cardiovascular: No chest pain Respiratory: No shortness of breath Skin: No rash Musculoskeletal: + back pain Female : + kidney stones, No blood in urine, No painful urination Physical Exam Vital Signs: Vital Signs Past 12 Hours Date Time Temp Pulse Resp B/P Pulse Ox O2 Delivery O2 Flow Rate FiO2 12/16/16 07:20 36.5 63 17 102/64 95 Room Air 12/16/16 00:56 Room Air 12/15/16 23:47 36.6 47 16 95/55 95 Room Air 12/15/16 23:37 Room Air Physical Exam: General Appearance: no apparent distress Eyes: bilateral eyes normal inspection ENT: hearing grossly normal Neck: no JVD Respiratory/Chest: no respiratory distress, no accessory muscle use Cardiovascular: no JVD Extremities: normal inspection Neurologic/Psychiatric: alert, normal mood/affect, oriented x 3 Skin: normal color Assessment & Plan Assessment & Plan A/P: Microhematuria, bilateral renal stones AFVSS. Definite microhematuria. ? gross hematuria. She is pending an EGD today. Will get a UC&S and urine cytology while inpatient. I have also recommended an outpatient cysto to complete evaluation. As for her stones, no evidence of ureteral stone on CT. Would consider a KUB as an outpatient. May be a candidate for outpatient ESWL at some point if stones visible and large enough. Thanks for the consult. Will continue to follow along with primary service at this time.
[2016-12-16 08:53] LABS: BUN/CREATININE RATIO 11.1 (10-20); CALCIUM 8.3 mg/dl (8.5-10.1); CREATININE 0.7 mg/dl (0.60-1.20); POTASSIUM 4.3 mmol/L (3.5-5.1)
[2016-12-16] MEDS: DICYCLOMINE HCL 10 MG CAP PO SCH ×2 (09:00→21:00)
[2016-12-16] MEDS: LORAZEPAM 0.5 MG TAB PO PRN ×2 (09:34→18:31)
[2016-12-16 10:52] LABS: HEMATOCRIT 33.2 % (37-47); MEAN CORPUSCULAR HEMOGLOBIN 30.1 pg (25-34); MEAN CORPUSCULAR HGB CONC 33.4 g/dl (32-36); MEAN PLATELET VOLUME 10.3 fL (7.4-10.4); PLATELET COUNT 219 K/uL (130-400); RED BLOOD COUNT 3.69 M/uL (4.2-5.4); WHITE BLOOD COUNT 7.21 K/uL (4.8-10.8)
[2016-12-16] MEDS ORDERED: LIDOCAINE HCL 2% 2 ML VIAL (20MG/ML) ONE (14:35)
[2016-12-16] MEDS ORDERED: MIDAZOLAM HCL 1 MG/ML 2ML VIAL ONE (14:35)
[2016-12-16] MEDS ORDERED: ONDANSETRON INJ 2 MG/ML 2 ML VIAL ONE (14:36)
[2016-12-16] MEDS ORDERED: PROPOFOL IV EMULSION 10 MG/ML 20 ML VIAL IV ONE (14:36)
--- NOTE | 2016-12-16 14:41 | History & Physical Bridge Note ---
H&P Re-Evaluation Bridge Note: I have examined the patient, reviewed the History & Physical and in the interval since the performance of the History & Physical I have noted the following changes of clinical significance: No changes noted
--- NOTE | 2016-12-16 15:15 | GI REPORT ---
Procedure Date: 12/16/2016 2:44 PM Procedure: Upper GI endoscopy Indications: Epigastric abdominal pain, Nausea with vomiting Medicines: Propofol per Anesthesia Complications: No immediate complications. Estimated blood loss: Minimal. Estimated Blood Loss: Estimated blood loss was minimal. Procedure: Pre-Anesthesia Assessment: - Prior to the procedure, a History and Physical was performed, and patient medications and allergies were reviewed. The patient's tolerance of previous anesthesia was also reviewed. The risks and benefits of the procedure and the sedation options and risks were discussed with the patient. All questions were answered, and informed consent was obtained. Prior Anticoagulants: The patient has taken no previous anticoagulant or antiplatelet agents. ASA Grade Assessment: II - A patient with mild systemic disease. After reviewing the risks and benefits, the patient was deemed in satisfactory condition to undergo the procedure. After obtaining informed consent, the endoscope was passed under direct vision. Throughout the procedure, the patient's blood pressure, pulse, and oxygen saturations were monitored continuously. The scope was introduced through the mouth, and advanced to the third part of duodenum. The upper GI endoscopy was accomplished without difficulty. The patient tolerated the procedure well. Findings: The examined esophagus was normal. A small hiatus hernia was found. The proximal extent of the gastric folds (end of tubular esophagus) was 40 cm from the incisors. The hiatal narrowing was 41 cm from the incisors. The Z-line was 40 cm from the incisors. One non-bleeding superficial gastric ulcer with no stigmata of bleeding was found on the lesser curvature of the gastric body. The lesion was 10 mm in largest dimension. Biopsies were taken with a cold forceps for histology. Estimated blood loss was minimal. The gastric body and gastric antrum were normal. Biopsies were taken with a cold forceps for histology. Estimated blood loss was minimal. Verification of patient identification for the specimen was done by the physician and field radio technician using the patient's name and medical record number. The examined duodenum was normal. Retained gastric contents are not identified on this exam. The cardia and gastric fundus were normal on retroflexion. Impression: - Normal esophagus. - Small hiatus hernia. - Non-bleeding gastric ulcer with no stigmata of bleeding. Biopsied. - Normal gastric body and antrum. Biopsied. - Normal examined duodenum. Recommendation: - Advance diet as tolerated. - Continue present medications. - Use Prilosec (omeprazole) 40 mg PO daily. - Await pathology results. - Return patient to hospital [facility] for ongoing care. MD Ray Eubanks MD 12/16/2016 3:15:55 PM This report has been signed electronically. Note Initiated On: 12/16/2016 2:44 PM I attest to the content of the Intraoperative Record and orders documented therein, exceptions below
--- NOTE | 2016-12-16 15:58 | Anesthesiology Progress Note ---
Anesthesia Post Op Note Date & Time Dec 16, 2016 at 15:58 Vital Signs Pain Intensity: 0 Vital Signs Past 12 Hours Date Time Temp Pulse Resp B/P Pulse Ox O2 Delivery O2 Flow Rate FiO2 12/16/16 15:40 55 16 120/74 99 Room Air 12/16/16 15:25 55 16 128/68 98 Room Air 12/16/16 15:10 56 16 112/71 96 Room Air 12/16/16 14:10 36.9 49 16 104/54 99 Room Air 12/16/16 13:44 36.8 79 16 98/62 98 Room Air 12/16/16 07:42 36.8 79 16 98/62 98 Room Air 12/16/16 07:30 Room Air 12/16/16 07:20 36.5 63 17 102/64 95 Room Air Notes Mental Status: alert / awake / arousable, participated in evaluation Pt Amnestic to Procedure: Yes Nausea / Vomiting: adequately controlled Pain: adequately controlled Airway Patency, RR, SpO2: stable & adequate BP & HR: stable & adequate Hydration State: stable & adequate Anesthetic Complications: no major complications apparent
[2016-12-16] MEDS: PANTOprazole SOD 40 MG TAB PO SCH ×2 (16:23→21:00)
--- NOTE | 2016-12-16 16:27 | Discharge Instructions ---
Discharge Instructions Date of Service Dec 16, 2016. Admission Reason for Admission: Abdominal Pain, Intractable Nausea/Vomiting Discharge Discharge Diagnosis / Problem: superficial ulcer Discharge Goals Goal(s): Diagnostic testing, Therapeutic intervention Activity Recommendations Activity Limitations: as noted below Exercise/Sports Limitations: gradually increase as tolerated . Instructions / Follow-Up Instructions / Follow-Up You were admitted to the hospital because of worsening abdominal pain and nausea and vomiting. We consulted GI and a scope was done to see if there was a cause of your abdominal pain. A superficial ulcer was noted and recommendations from GI is to continue a PPI. We recommend taking 40 mg of Prilosec daily. A script will be given. A biopsy was taken and results will be discussed in the follow up with GI. Urology was also consulted because of your kidney stones. The plan is for outpatient follow up which will be arranged. We wish you well Davon Devi Current Hospital Diet Patient's current hospital diet: Regular Diet Discharge Diet Recommended Diet: Regular Diet Procedures Procedures Performed: EGD with bx Pending Studies Studies pending at discharge: yes List of pending studies: Biopsy results Medical Emergencies . Who to Call and When: Medical Emergencies: If at any time you feel your situation is an emergency, please call 911 immediately. . Non-Emergent Contact Non-Emergency issues call your: Primary Care Provider . . "Provider Documentation" section prepared by Michelle Devi. VTE Core Measure Inpt VTE Proph given/why not?: SCD's [place] Drug Monitoring Program Search Results: patient reviewed within database, no issues identified Drug Monitoring Findings: Monthly rx noted
[2016-12-16] MEDS ORDERED: PRLSR20 PO (16:58)
--- NOTE | 2016-12-16 17:05 | Discharge Summary ---
Discharge Summary Date of Service Dec 16, 2016. 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 (4) Peptic ulcer disease Status: Chronic Procedures: EGD with bx Consultations: Dr Francisco (Michelle Devi MD) Medication Reconciliation New Medications: Omeprazole (Prilosec) 20 Mg Capcr 40 MG PO DAILY for 30 Days, #60 CAP Continued Medications: Dicyclomine HCl (Dicyclomine HCl) 10 Mg Cap 10 MG PO BID for 30 Days, #60 CAP Hydrocodone/Acetaminophen ([place] 10/325 Tab) 1 Tab Tab 1 TAB PO TID PRN for Pain, TAB Discontinued Medications: Pantoprazole (Pantoprazole Sodium) 40 Mg Tab 40 MG PO BID for 30 Days, #60 TAB Discharge Exam Patient has had improvement in abdominal pain Has been able to eat her meal without N&V discussed d/c home with patient and mother and understood d/c instructions as well as agreeable to d/c home Review of Systems: Constitutional: No fever Eyes: No worsening of vision ENT: No hearing loss Respiratory: No cough, No dyspnea at rest, No dyspnea on exertion, No shortness of breath, No sputum, No wheezing Cardiovascular: No chest pain Abdomen: + pain, No constipation, No diarrhea, No nausea, No vomiting Musculoskeletal: No joint pain, No muscle pain Genitourinary - Female: + hematuria, No dysuria Neurologic: No balance problems, No numbness/tingling, No weakness Endocrine: No fatigue Integumentary: No rash Physical Exam: General Appearance: no apparent distress Eyes: normal inspection ENT: normal ENT inspection Neck: supple Respiratory/Chest: lungs clear, normal breath sounds, no respiratory distress, no accessory muscle use Cardiovascular: regular rate, rhythm, no murmur Abdomen / GI: normal bowel sounds, soft, + tenderness (tender in lower abdomen) Extremities: no calf tenderness, no pedal edema, normal range of motion Neurologic/Psychiatric: alert, normal mood/affect, oriented x 3 Skin: normal color, warm/dry, no rash Lymphatic: no adenopathy (Michelle Devi MD) Hospital Course This is a 31 yo f with a 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 She is narcotic-dependent and has presented multiple times with intractable lower abdominal pain, and intractable N/V which she has had for 2 days prior to admission. She was also suffering from hematuria which she states she will gets occasionally and will worsen when she strains. GI was consulted and an EGD was performed. It was noted she had a superficial ulcer and a biopsy was taken. Urology was also consulted for hematuria and recommendations were for outpt follow up Acute on chronic abdominal pain of unknown etiology; intractable N&V - Morphine 4 mg q2 h - Zofran for nausea and scheduled Reglan - GI consult - EGD- superficial ulcer with biopsy - Will follow up in outpt for results Hematuria possibly secondary to nephrolithiasis - consult urology - follow up in outpt for possible cystoscopy - will be arranged hypomagnesemia, hypokalemia - Recommend a recheck of BMP and mg in outpt setting Narcotic dependence PDMP reviewed - approx one rx for narcotics/ month Tobacco abuse - continue to encourage d/c tobacco use Total Time Spent: Less than 30 minutes This includes examination of the patient, discharge planning, medication reconciliation, and communication with other providers. (Michelle Devi MD) Resident Physician Supervision Note: I interviewed and examined the patient. Discussed with Dr. Devi and agree with findings and plan as documented in the note. Any exceptions or clarifications are listed here: None Documented By: Felice cM feeling about the same, EGD showed PUD. as long as able to eat w reasonable pain control - then home (hopefully tonight) vitals noted. no pallor or icterus PUD / postprandial pain / nausea - PPI, f/u as outpt stable (Felice Mc, D.O.) Discharge Instructions Please refer to the electronic Patient Visit Report (Discharge Instructions) for additional information. (Michelle Devi MD)
[2016-12-16] MEDS ORDERED: SOD PHOSPHATE/SOD BIPHOSPHATE ENEMA 132 ML BTL PR STA (17:08)
[2016-12-16] MEDS ORDERED: MINERAL OIL 30 ML UDC PO ONE (18:00)
[2016-12-16] MEDS: ONDANSETRON INJ 2 MG/ML 2 ML VIAL IV PRN (18:14)
[2016-12-16] MEDS ORDERED: HYDROmorphone INJ 1 MG/ML SYR IV STA (19:06)
[2016-12-16] MEDS: HYDROCODONE/ACETAMI 10/325 TAB PO SCH (21:00)
[2016-12-16] MEDS ORDERED: SODIUM CHLORIDE 0.9% 500ML 500 ML IV STA (22:02)
[2016-12-16] MEDS ORDERED: PROMETHAZINE HCL INJ 25 MG in SODIUM CHLORIDE 0.9% 50ML 50 ML IV PRN (22:15)
[2016-12-16] MEDS ORDERED: PANTOprazole INJ 40 MG in SYRINGE 0 ML IV STA (22:21)
[2016-12-17] MEDS: ONDANSETRON INJ 2 MG/ML 2 ML VIAL IV PRN ×2 (00:41→13:56)
[2016-12-17] MEDS: D5NSS + 20MEQ KCL 1,000 ML IV SCH ×2 (01:03→08:41)
[2016-12-17] MEDS: MoRPHine SULFATE 4 MG/ML 1 ML CARP\\VIAL IV PRN ×2 (01:04→03:13)
[2016-12-17] MEDS: METOCLOPRAMIDE HCL INJ 5 MG/ML 2 ML VIAL IV SCH ×3 (02:26→17:54)
[2016-12-17] MEDS: LORAZEPAM 0.5 MG TAB PO PRN ×4 (06:36→22:02)
[2016-12-17 07:13] VITALS: BP 129/81; PULSE 55; TEMP 37.5; O2SAT 99
[2016-12-17] MEDS ORDERED: SUCRALFATE 1 GM/10 ML UDC PO ONE ×2 (07:23→10:20)
--- NOTE | 2016-12-17 07:58 | Progress Note ---
Subjective Date of Service: Dec 17, 2016. Subjective Pt evaluation today including: conversation w/ patient, chart review, lab review Voiding: no voiding problems 31 yo female with hematuria. Remains inpatient this morning d/t intractable n/v after EGD. Denies dysuria, hematuria, or voiding difficulty this morning. Primarily c/o abdominal pain associated with vomiting. Urine cytology negative for malignant cells. UC&S pending. 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 (10) Left flank pain Status: Acute (11) Ovarian cyst Status: Acute (12) Ovarian cyst, complex Status: Acute (13) Peptic ulcer disease Status: Chronic (14) Right ovarian cyst Status: Acute (15) Vomiting Status: Acute (16) Vomiting Status: Acute Review of Systems Constitutional: No chills, No fever Respiratory: No shortness of breath Cardiac: No chest pain Abdomen: + nausea, + pain, + see HPI, + vomiting Female : No dysuria, No hematuria Heme: No abnormal bleeding/bruising Objective Vital Signs Date Time Temp Pulse Resp B/P Pulse Ox O2 Delivery O2 Flow Rate FiO2 12/16/16 23:45 Room Air 12/16/16 23:29 37.2 56 16 127/80 93 Room Air 12/16/16 20:54 79 111/65 12/16/16 17:37 37.0 47 16 99 Room Air 12/16/16 16:05 37.0 47 16 116/66 99 Room Air 12/16/16 15:40 55 16 120/74 99 Room Air 12/16/16 15:25 55 16 128/68 98 Room Air 12/16/16 15:10 56 16 112/71 96 Room Air 12/16/16 14:10 36.9 49 16 104/54 99 Room Air 12/16/16 13:44 36.8 79 16 98/62 98 Room Air Physical Exam General Appearance: no apparent distress Eyes: normal inspection ENT: hearing grossly normal Neck: no JVD Respiratory/Chest: no respiratory distress, no accessory muscle use Cardiovascular: no JVD Extremities: normal inspection Neurologic/Psychiatric: alert, normal mood/affect, oriented x 3 Skin: normal color Laboratory Results Last 24 Hours Test 12/16/16 08:06 White Blood Count 7.21 K/uL Red Blood Count 3.69 M/uL Hemoglobin 11.1 g/dL Hematocrit 33.2 % Mean Corpuscular Volume 90.0 fL Mean Corpuscular Hemoglobin 30.1 pg Mean Corpuscular Hemoglobin Concent 33.4 g/dl RDW Standard Deviation 45.7 fL RDW Coefficient of Variation 13.8 % Platelet Count 219 K/uL Mean Platelet Volume 10.3 fL Sodium Level 145 mmol/L Potassium Level 4.3 mmol/L Chloride Level 115 mmol/L Carbon Dioxide Level 24 mmol/L Anion Gap 6.0 mmol/L Blood Urea Nitrogen 8 mg/dl Creatinine 0.70 mg/dl Est Creatinine Clear Calc Drug Dose 106.7 ml/min Estimated GFR () 135.7 Estimated GFR (Non- 117.1 BUN/Creatinine Ratio 11.1 Random Glucose 95 mg/dl Calcium Level 8.3 mg/dl Assessment and Plan A/P: Hematuria, bilateral nephrolithiasis AFVSS. Definite microhematuria. ? gross hematuria. Negative urine cytology. UC&S pending. Will need outpatient cysto to complete evaluation of hematuria. As for her stones, no evidence of ureteral stone on CT. Would consider a KUB as an outpatient. May be a candidate for outpatient ESWL at some point if stones visible and large enough. No further management at this time. Will arrange for outpatient f/u for cysto. Recall PRN issues. Thanks for allowing us to participate in this pt's care. Continued [facility] stay due to: other Discharge planning: uncertain
[2016-12-17] MEDS ORDERED: NURSING VERBAL MED ORDER ONE ×2 (08:30→16:45)
[2016-12-17] MEDS: DICYCLOMINE HCL 10 MG CAP PO SCH ×2 (08:42→20:57)
[2016-12-17] MEDS: HYDROCODONE/ACETAMI 10/325 TAB PO SCH ×3 (08:42→20:57)
[2016-12-17] MEDS: PANTOprazole SOD 40 MG TAB PO SCH (08:42)
[2016-12-17] MEDS ORDERED: LORAZEPAM INJ 0.5 MG in SYRINGE 0.75 ML IV ONE (08:45)
[2016-12-17] MEDS ORDERED: HYDROmorphone INJ 0.5 MG/0.5 ML SYR IV STA (09:42)
[2016-12-17] MEDS ORDERED: ALUMINUM/MAGNESIUM/SIMETH (MAALOX MAX) 30 ML UDC PO STA (09:42)
[2016-12-17] MEDS ORDERED: LIDOCAINE HCL 2% VISC SOLN 20 ML UDC PO ONE (09:45)
[2016-12-17] MEDS ORDERED: ONDANSETRON INJ 8 MG in DEXTROSE 5% 50ML 50 ML IV ONE (09:45)
[2016-12-17] MEDS ORDERED: FAMOTIDINE 20 MG TAB PO ONE (10:20)
[2016-12-17] MEDS ORDERED: PANTOprazole SOD 40 MG TAB PO ONE (10:20)
[2016-12-17] MEDS: SUCRALFATE 1 GM/10 ML UDC PO SCH ×3 (12:38→20:58)
[2016-12-17 12:44] LABS: COD UR NEGATIVE NG/ML (CUTOFF=50); HYDROCOD UR NEGATIVE NG/ML (CUTOFF=50); HYDROMOR UR 401 NG/ML (CUTOFF=50); MORPHINE UR 900 NG/ML (CUTOFF=50); NORHYDROCODONE CONF UR 911 NG/ML (CUTOFF=50); OXYMORPH UR 608 NG/ML (CUTOFF=50)
[2016-12-17 15:14] VITALS: BP 147/92; PULSE 62; TEMP 37.1; O2SAT 99
--- NOTE | 2016-12-17 16:22 | Family Medicine Progress Note ---
Progress Note Date of Service Dec 17, 2016. Subjective Pt evaluation today including: conversation w/ patient, physical exam, chart review, lab review, review of studies Pain: 8/10 PO Intake: npo Voiding: no voiding problems Patient was meant for d/c yesterday and prior to d/c patient had increasin N&V, anxiety and uncontrolled pain and did not feel comfortable for d/c She had continued concerns for pain this morning and was able to sleep after receiving a GI cocktail when asked about help at home she states that her is not very helpful she also has had multiple conversations during the day with the RN about potentially seeing psych as she had reservations and she is now agreeable to it Constitutional: No fever Eyes: No worsening of vision ENT: No hearing loss Respiratory: No cough, No dyspnea on exertion, No shortness of breath, No sputum, No wheezing Cardiovascular: No chest pain Abdomen: + constipation, + nausea, + pain, + vomiting, No diarrhea Musculoskeletal: No joint pain, No muscle pain Neurologic: No balance problems, No weakness Psychiatric: + anxiety, + depression symptoms Endo: No fatigue Medications Medications Administered Medications (Trade) Dose Ordered Sig/Husam Route Start Time Stop Time Status Last Admin Dose Admin Sodium Chloride 2,000 ml @ 999 mls/hr Q2H1M STAT IV 12/14/16 16:46 12/14/16 18:46 DC 12/14/16 17:07 999 MLS/HR Sodium Chloride (Nss 1000ml) 1,000 ml @ 250 mls/hr Q4H STAT IV 12/14/16 16:46 12/14/16 20:45 DC 12/14/16 18:06 250 MLS/HR Prochlorperazine Edisylate (Compazine Inj) 10 mg NOW STAT IV 12/14/16 16:46 12/14/16 16:49 DC 12/14/16 17:07 10 MG Diphenhydramine HCl (Benadryl Inj) 50 mg NOW STAT IV 12/14/16 16:46 12/14/16 16:49 DC 12/14/16 17:07 50 MG Ondansetron HCl (Zofran Inj) 4 mg NOW STAT IV 12/14/16 16:46 12/14/16 16:50 DC 12/14/16 17:06 4 MG Dexamethasone Sodium Phosphate (Decadron Inj) 10 mg NOW ONCE IV 12/14/16 17:00 12/14/16 17:01 DC 12/14/16 17:07 10 MG Hydromorphone HCl (Dilaudid Inj) 0.5 mg NOW STAT IV 12/14/16 16:46 12/14/16 16:50 DC 12/14/16 17:10 0.5 MG Hydromorphone HCl (Dilaudid Inj) 1 mg NOW STAT IV 12/14/16 18:13 12/14/16 18:16 DC 12/14/16 18:28 1 MG Famotidine (Pepcid 20mg/100 ml) 20 mg ONE STAT IV 12/14/16 18:13 12/14/16 18:16 DC 12/14/16 18:29 20 MG Ondansetron HCl (Zofran Inj) 4 mg NOW STAT IV 12/14/16 20:00 12/14/16 20:01 DC 12/14/16 20:14 4 MG Hydromorphone HCl (Dilaudid Inj) 1 mg NOW STAT IV 12/14/16 20:00 12/14/16 20:01 DC 12/14/16 20:15 1 MG Dicyclomine HCl (Bentyl Cap) 10 mg BID PO 12/15/16 09:00 01/14/17 08:59 12/17/16 08:42 10 MG Pantoprazole Sodium (Protonix Tab) 40 mg BID PO 12/15/16 09:00 01/14/17 08:59 Future Hold 12/17/16 08:42 40 MG Morphine Sulfate (MoRPHine SULFATE INJ) 4 mg Q8H PRN IV 12/14/16 23:30 12/15/16 08:58 DC 12/15/16 01:34 4 MG Metoclopramide HCl (Reglan Inj) 5 mg Q8H IV 12/15/16 02:00 01/14/17 01:59 12/17/16 10:31 5 MG Al Hydrox/Mg Hydrox/Simethicone (Maalox Max Susp) 15 ml Q4H PRN PO 12/14/16 23:30 01/13/17 23:29 12/15/16 04:40 15 ML Ondansetron HCl 4 mg 4 mg Q6H PRN IV 12/14/16 23:30 01/13/17 23:29 12/17/16 13:56 4 MG Potassium Chloride/Dextrose/ Sod Cl 1,000 ml @ 150 mls/hr Q6H40M IV 12/15/16 02:15 12/17/16 09:44 DC 12/17/16 08:41 150 MLS/HR Potassium Chloride/Prmx (Kcl 10 Meq / Wtr/Premixed Water) 100 ml @ 100 mls/hr Q1H IV 12/15/16 02:00 12/15/16 03:59 DC 12/15/16 03:22 100 MLS/HR Magnesium Sulfate (Magnesium Sulfate) 1 gm TODAY@0000 IV 12/15/16 00:00 12/15/16 02:00 DC 12/15/16 00:20 1 GM Morphine Sulfate (MoRPHine SULFATE INJ) 4 mg Q2H PRN IV 12/15/16 12:00 12/17/16 06:00 DC 12/17/16 03:13 4 MG Morphine Sulfate (MoRPHine SULFATE INJ) 4 mg STK-MED ONCE .ROUTE 12/15/16 09:27 12/15/16 09:31 DC 12/15/16 09:33 4 MG Lorazepam (Ativan Tab) 0.5 mg Q4H PRN PO 12/15/16 16:45 01/14/17 16:44 12/17/16 13:56 0.5 MG Hydromorphone HCl (Dilaudid Inj) 1 mg NOW STAT IV 12/16/16 19:06 12/16/16 19:17 DC 12/16/16 19:45 1 MG Acetaminophen/ Hydrocodone Bitart 1 tab 1 tab TID PO 12/16/16 21:00 12/30/16 20:59 12/17/16 12:39 1 TAB Promethazine HCl 25 mg/Sodium Chloride 51 ml @ 204 mls/hr Q6H PRN IV 12/16/16 22:15 01/15/17 22:14 12/17/16 03:26 204 MLS/HR Pantoprazole Sodium 40 mg/ Syringe 10 ml @ 5 mls/min NOW STAT IV 12/16/16 22:21 12/16/16 22:22 DC 12/16/16 22:37 5 MLS/MIN Sodium Chloride (Nss 500ml) 500 ml @ 500 mls/hr Q1H STAT IV 12/16/16 22:02 12/16/16 23:01 DC 12/16/16 22:38 500 MLS/HR Sucralfate (Carafate Susp) 1 gm QID PO 12/17/16 13:00 01/16/17 12:59 12/17/16 12:38 1 GM Sucralfate 1 gm 1 gm 0723 ONCE PO 12/17/16 07:23 12/17/16 07:26 DC 12/17/16 08:41 1 GM Lorazepam 0.5 mg/ Syringe 1 ml @ 1 mls/min NOW ONCE IV 12/17/16 08:45 12/17/16 08:46 DC 12/17/16 08:41 1 MLS/MIN Ondansetron HCl/ Dextrose (Zofran Inj/D5 50ml) 54 ml @ 200 mls/hr ONE ONCE IV 12/17/16 09:45 12/17/16 10:01 DC 12/17/16 10:31 200 MLS/HR Hydromorphone HCl (Dilaudid Inj) 0.5 mg NOW STAT IV 12/17/16 09:42 12/17/16 10:00 DC 12/17/16 10:31 0.5 MG Al Hydrox/Mg Hydrox/Simethicone (Maalox Max Susp) 15 ml NOW STAT PO 12/17/16 09:42 12/17/16 10:00 DC 12/17/16 10:30 15 ML Lidocaine HCl (Viscous Lidocaine 2% Soln) 20 ml NOW ONCE PO 12/17/16 09:45 12/17/16 10:00 DC 12/17/16 10:31 20 ML Pantoprazole Sodium (Protonix Tab) 40 mg ONE ONCE PO 12/17/16 10:20 12/17/16 10:21 DC 12/17/16 10:32 40 MG Famotidine (Pepcid Tab) 20 mg ONE ONCE PO 12/17/16 10:20 12/17/16 10:21 DC 12/17/16 11:04 20 MG Sucralfate (Carafate Susp) 1 gm ONE ONCE PO 12/17/16 10:20 12/17/16 10:21 DC 12/17/16 10:31 1 GM Objective Vital Signs Date Time Temp Pulse Resp B/P Pulse Ox O2 Delivery O2 Flow Rate FiO2 12/17/16 15:14 37.1 62 17 147/92 99 Room Air 12/17/16 08:45 Room Air 12/17/16 07:13 37.5 55 16 129/81 99 Room Air 12/16/16 23:45 Room Air 12/16/16 23:29 37.2 56 16 127/80 93 Room Air 12/16/16 20:54 79 111/65 12/16/16 17:37 37.0 47 16 99 Room Air Physical Exam General Appearance: + moderate distress Eyes: normal inspection ENT: normal ENT inspection Neck: supple Respiratory/Chest: lungs clear, normal breath sounds, no respiratory distress, no accessory muscle use Cardiovascular: regular rate, rhythm, no murmur Abdomen: normal bowel sounds, soft, + tenderness (lower abdomen) Extremities: non-tender, normal inspection, no pedal edema, no calf tenderness Neurologic/Psychiatric: alert, oriented x 3 Skin: normal color, warm/dry, no rash Lymphatic: no adenopathy Assessment and Plan This is a 31 yo f with a 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 She is narcotic-dependent and has presented multiple times with intractable lower abdominal pain, and intractable N/V which she has had for 2 days prior to admission. She was also suffering from hematuria which she states she will gets occasionally and will worsen when she strains. She has ongoing N&V with abdominal pain and multiple psychosocial stressors at home. A psych was consulted for evaluation. Acute on chronic abdominal pain of unknown etiology; intractable N&V - Home dose Pike is husam - pepcid and protonix during this acute phase - plan for d/c with omeprazole - GI cocktail tid - Zofran for nausea and scheduled Reglan - IVF and NPO - GI consult Anxiety/ Depression secondary to chronic pain and psychosocial stressors -psych consult Hematuria possibly secondary to nephrolithiasis - consult urology - follow bmp hypomagnesemia, hypokalemia replete prn Narcotic dependence PDMP reviewed - approx one rx for narcotics/ month - no rx on d/c Tobacco abuse - continue to encourage d/c tobacco use Resident Physician Supervision Note: I interviewed and examined the patient. Discussed with Dr. Devi and agree with findings and plan as documented in the note. Any exceptions or clarifications are listed here: None Documented By: Felice Mc feeling worse. vomiting through the night. not able to eat. ongoing epigastric pain vitals noted. appearing upset and in moderate degree of pain/nausea related distress abd soft nd (+) epigastric ttp no guardign rebound no rigidity rest of abdomen benign a/p PUD w intractable nausea/vomiting -this AM added carafate --> vomited. tried GI cocktail and zofran / dilauded, then pepcid, protonix - seemed to help a little, but then vomiting more. will move to aggressive sx control: GI cocktail TID, carafate QID, scheduled zofran QID, pepcid IV BID until able to tolerate PO, protonix IV BID until able to tolerate po. still too ill to go home with inability for PO intake Continued [facility] stay due to: inadequate po fluid intake, inadequate oral pain control Discharge planning: uncertain
[2016-12-17] MEDS: FAMOTIDINE IV INJ 20 MG in DEXTROSE 5% 100ML 100 ML IV SCH (16:53)
[2016-12-17] MEDS: ONDANSETRON INJ 8 MG in DEXTROSE 5% 50ML 50 ML IV SCH ×2 (16:53→22:02)
[2016-12-17] MEDS: ALUMINUM/MAGNESIUM SUSP 72 ML, LIDOCAINE HCL 2% VISCOUS SOLN 24 ML, BARCODE IDENTIFIER ... PO SCH ×4 (17:17→22:02)
[2016-12-17] MEDS ORDERED: PROMETHAZINE HCL INJ 25 MG/ML 1 ML VIAL IM STA (19:14)
[2016-12-17] MEDS ORDERED: PROMETHAZINE HCL INJ 25 MG in SODIUM CHLORIDE 0.9% 50ML 50 ML IV PRN (19:15)
[2016-12-17] MEDS ORDERED: GI COCKTAIL PO SCH (21:00)
[2016-12-17] MEDS ORDERED: ALUMINUM/MAGNESIUM SUSP 72 ML, LIDOCAINE HCL 2% VISCOUS SOLN 24 ML, BARCODE IDENTIFIER ... PO SCH ×2 (21:00)
[2016-12-17] MEDS: PANTOprazole INJ 40 MG in SYRINGE 0 ML IV SCH (22:02)
[2016-12-17 23:07] VITALS: BP 96/60; PULSE 70; TEMP 36.9; O2SAT 95
[2016-12-18] MEDS: METOCLOPRAMIDE HCL INJ 5 MG/ML 2 ML VIAL IV SCH ×2 (01:57→08:57)
[2016-12-18] MEDS: ALUMINUM/MAGNESIUM/SIMETH (MAALOX MAX) 30 ML UDC PO PRN (02:30)
[2016-12-18] MEDS: LORAZEPAM 0.5 MG TAB PO PRN ×3 (03:05→16:47)
[2016-12-18] MEDS: ONDANSETRON INJ 8 MG in DEXTROSE 5% 50ML 50 ML IV SCH ×3 (04:18→16:39)
[2016-12-18] MEDS: FAMOTIDINE IV INJ 20 MG in DEXTROSE 5% 100ML 100 ML IV SCH (05:05)
[2016-12-18 07:05] VITALS: BP 116/78; PULSE 58; TEMP 37.2; O2SAT 96
[2016-12-18 07:06] LABS: BUN/CREATININE RATIO 5.1 (10-20); CALCIUM 8.5 mg/dl (8.5-10.1); CREATININE 0.83 mg/dl (0.60-1.20); POTASSIUM 3.4 mmol/L (3.5-5.1)
[2016-12-18 07:33] LABS: HEMATOCRIT 38.4 % (37-47); MEAN CELL VOLUME 86.1 fL (80-100); MEAN CORPUSCULAR HEMOGLOBIN 30.3 pg (25-34); MEAN CORPUSCULAR HGB CONC 35.2 g/dl (32-36); MEAN PLATELET VOLUME 11.2 fL (7.4-10.4); PLATELET COUNT 241 K/uL (130-400); RED BLOOD COUNT 4.46 M/uL (4.2-5.4); WHITE BLOOD COUNT 5.28 K/uL (4.8-10.8)
[2016-12-18] MEDS: SUCRALFATE 1 GM/10 ML UDC PO SCH ×2 (08:46→13:51)
[2016-12-18] MEDS: PANTOprazole INJ 40 MG in SYRINGE 0 ML IV SCH (08:47)
[2016-12-18] MEDS: DICYCLOMINE HCL 10 MG CAP PO SCH (08:48)
[2016-12-18] MEDS: HYDROCODONE/ACETAMI 10/325 TAB PO SCH ×2 (08:57→13:51)
[2016-12-18] MEDS ORDERED: POTASSIUM CITRATE 10 MEQ TAB PO ONE (09:45)
[2016-12-18] MEDS: ALUMINUM/MAGNESIUM SUSP 72 ML, LIDOCAINE HCL 2% VISCOUS SOLN 24 ML, BARCODE IDENTIFIER ... PO SCH ×4 (09:56→13:52)
--- NOTE | 2016-12-18 11:09 | DIAGNOSTIC IMAGING REPORT ---
KUB HISTORY: renal stones COMPARISON: Abdomen and pelvis CT 12/14/2016. FINDINGS: The bowel gas pattern is unremarkable. There are no dilated loops of small bowel to suggest an obstruction. Cholecystectomy. The patient's punctate bilateral renal calculi are obscured by overlying bowel gas. No ureteral calculi identified. No pneumoperitoneum or pneumatosis. IMPRESSION: The patient's punctate bilateral renal calculi are obscured by overlying bowel gas. No definite ureteral calculi. Electronically signed by: Tom Calderon M.D. 12/18/2016 11:08 AM Dictated Date/Time: 12/18/2016 11:06 AM
[2016-12-18 11:30] VITALS: O2SAT 96
--- NOTE | 2016-12-18 13:22 | Psychiatric Consultation ---
Consultation Identifying Data 31-year-old white female from [place] who has a history of depression that is not currently treated, chronic back pain, and chronic abdominal pain, who is admitted with abdominal pain and nausea. Psychiatry was consulted for depression and anxiety. Chief Complaint "I just been having a lot going on lately". History of Present Illness The patient presented to the emergency room 4 days ago with abdominal pain, vomiting, and near syncope. She has long list of medical problems, including chronic gastritis, chronic low back pain, duodenal ulcer disease, kidney stones , Langerhans cell histiocytosis of lung, peptic ulcer disease, GERD, narcotic dependence, and tobacco abuse. A CT of her abdomen showed several nonobstructing renal calcifications bilaterally and a 3.5 cm complex cyst of the right ovary. She's been continued on her home dose of [place], although the admitting physician noted that there is no known etiology for her pain and her narcotic use may be detrimental and should be addressed during this admission. She has had GI and urology consultations, and had an EGD with biopsy. She was scheduled to be discharged 2 days ago, but she and her mother expressed concerns that she had continued abdominal pain and vomiting, so she remained in the hospital. She is getting [place] 10/325 mg 3 times a day and Ativan 0.5 mg when necessary, which she has taken 2-4 times a day since admission. On my assessment, the patient states that she has been overwhelmed with her chronic medical conditions, which make it difficult for her to do things around the house. She states her problems began 9 years ago when she developed back pain, and although she's had multiple workups, no diagnosis has been made. She then developed a lung disease, and says "it seems like every other month I'm in the hospital for something." She feels frustrated and overwhelmed, noting multiple psychosocial stressors over that time period as well. 6 years ago, her lost a good job where he was making $30 an hour, and is now only able to find work but pays $9 an hour. Their house was foreclosed on, and they had to move. She admits to depressed mood which has been going on for months, and is worse when her pain is worse. She endorses restless sleep, low energy, and low motivation. She states "all I do is sit and watch TV." She denies changes in appetite, weight, and suicidality now or in the past. She denies symptoms consistent with warren, psychosis, OCD, and PTSD. She endorses generalized anxiety, stating she worries excessively about multiple day-to-day things, finds it hard to stop worrying, and it interferes with sleep. She denies symptoms of panic. She states "the only thing that calms me down is the Ativan. " She states her PCP had diagnosed her with depression approximately a year ago , at which time she had to short trials of antidepressants. She tried Celexa, but had GI side effects, so stopped it after a few days. She then tried Zoloft , and thinks she was on it for 1-2 months, but does not think the dose was never increased. She stopped it because it didn't seem to be helping. She says her outpatient physicians have recommended she see somebody for mental health treatment, but she has been resistant to the idea, stating she doesn't like being on lots of medications. She says somebody suggested she go to [place], but she heard "all the medicines they give there are Valium and Zannies and things like that, and I don't want that." Past Psychiatric History Current OP Treatment: no current treatment Prior OP Treatment: no prior treatment (other than PCP prescribing medications) Prior Psych Hospitalizations: none Denies a history of suicide attempts, self-injurious behavior, and violence towards others. Previous medication trials: Celexa (stopped after a few days due to GI side effects) disease, Zoloft (stopped after 1-2 months due to inefficacy, dose was never increased). Past Medical/Surgical History Problem List: (1) Opiate dependence (2) Chronic back pain (3) Abdominal pain (4) Intractable nausea and vomiting (5) Duodenal ulcer disease (6) Reflux esophagitis (7) Chronic gastritis (8) Langerhans cell histiocytosis Allergies Allergies: Coded Allergies: No Known Allergies (Unverified , 12/14/16) Home Medications Scheduled Dicyclomine HCl (Dicyclomine HCl), 10 MG PO BID Omeprazole (Prilosec), 40 MG PO DAILY Scheduled PRN Hydrocodone/Acetaminophen ([place] 10/325 Tab), 1 TAB PO TID PRN for Pain Family History Diabetes mellitus FATHER Hypertension Kidney disease Kidney stones Denies family history of mental illness, substance abuse or suicide. Alcohol Use Alcohol Use In Past 12 Months: No (Drinks rarely, only on holidays) Substance History Denies abusing recreational drugs, prescription medications, or OTC medications. Smokes 1PPD. Drinks 3 16oz bottles of Mtn. Dew daily. Personal History Education: graduated from high school Work History: Unemployed since oldest child born. Relationship History: Children: 3 - ages 11, 9, 5 Spiritual Affiliation: [employer] Legal History: none Abuse History: none Additional Comments: Lives in [place]. 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 Review of Systems 10 systems reviewed. Positive for abdominal pain and nausea. Others negative except as stated above. Examination Vital Signs Vital Signs Past 12 Hours Date Time Temp Pulse Resp B/P Pulse Ox O2 Delivery O2 Flow Rate FiO2 12/18/16 11:30 96 Room Air 12/18/16 08:00 Room Air 12/18/16 07:05 37.2 58 15 116/78 96 Room Air Laboratory Results Last 24 Hours Test 12/18/16 05:51 White Blood Count 5.28 K/uL Red Blood Count 4.46 M/uL Hemoglobin 13.5 g/dL Hematocrit 38.4 % Mean Corpuscular Volume 86.1 fL Mean Corpuscular Hemoglobin 30.3 pg Mean Corpuscular Hemoglobin Concent 35.2 g/dl RDW Standard Deviation 40.6 fL RDW Coefficient of Variation 13.0 % Platelet Count 241 K/uL Mean Platelet Volume 11.2 fL Sodium Level 140 mmol/L Potassium Level 3.4 mmol/L Chloride Level 105 mmol/L Carbon Dioxide Level 26 mmol/L Anion Gap 9.0 mmol/L Blood Urea Nitrogen 4 mg/dl Creatinine 0.83 mg/dl Est Creatinine Clear Calc Drug Dose 90.0 ml/min Estimated GFR () 110.4 Estimated GFR (Non- 95.3 BUN/Creatinine Ratio 5.1 Random Glucose 120 mg/dl Calcium Level 8.5 mg/dl Total Bilirubin 0.5 mg/dl Aspartate Amino Transf (AST/SGOT) 78 U/L Alanine Aminotransferase (ALT/SGPT) 120 U/L Alkaline Phosphatase 62 U/L Total Protein 6.9 gm/dl Albumin 3.4 gm/dl Globulin 3.5 gm/dl Albumin/Globulin Ratio 1.0 Mental Examination During interview pt is: alert and oriented, cooperative Appearance: appropriately dressed, disheveled Eye contact is: fair Motor behavior is: no abnormal motor movements Speech: normal in rate, rhythm & volume Affect: depressed, tearful Mood is: depressed Thought process: goal directed Thought content: reality based without delusions Suicidal thought are: denied Homicidal thoughts are: denied Hallucinations: denies auditory, denies visual Cognition: memory grossly intact, attention grossly intact, language grossly intact Intelligence estimated to be: average Insight: fair Judgement: fair Impression / Recommendations Impression 31-year-old white female from [place] with a history of depression treated briefly by her PCP about a year ago who is admitted with acute on chronic abdominal pain. She is on chronic narcotic pain medications, drinks several bottles of Mountain Dew daily, and smokes one pack per day. She has not followed through with recommendations for outpatient mental healthcare, but at this time is willing for a trial of another SSRI antidepressant and a referral for an outpatient therapist and psychiatrist. She would also benefit from working on her substance use, as excessive caffeine and nicotine use are likely exacerbating anxiety, and chronic narcotics can worsen mood. Recommendations (1) Depression Discussed her diagnosis and treatment recommendations, including medications and therapy. She is willing for a trial of an antidepressant, and reviewed the risks, benefits, and side effects of escitalopram, which she agreed to. We'll start 10 mg at bedtime tonight, and can be titrated up to an effective dose as an outpatient. The last the psychiatric liaison nurse to return and facilitate a referral for outpatient treatment with a therapist and psychiatrist. Also advised her that benzodiazepines would not be a good long-term option, given their addictive potential and her concurrent use of chronic opiates. She is receiving Ativan here, and recommend this be tapered prior to discharge. Agree with the admitting physician that her chronic opiate use is a concern and may be detrimental, and recommend this be addressed with the prescribing physician.
--- NOTE | 2016-12-18 15:58 | Discharge Instructions ---
Discharge Instructions Date of Service Dec 18, 2016. Admission Reason for Admission: Abdominal Pain, Intractable Nausea/Vomiting Discharge Discharge Diagnosis / Problem: superficial ulcer Discharge Goals Goal(s): Diagnostic testing, Therapeutic intervention Activity Recommendations Activity Limitations: resume your previous activity . Instructions / Follow-Up Instructions / Follow-Up You were admitted to the hospital because of worsening abdominal pain and nausea and vomiting. We consulted GI and a scope was done to see if there was a cause of your abdominal pain. A superficial ulcer was noted and recommendations from GI is to continue a PPI. A biopsy was taken and results will be discussed in the follow up with GI. Urology was also consulted because of your kidney stones. The plan is for outpatient follow up which will be arranged. 1. Continue Protonix twice a day for a month then decrease to daily for three month 2. Continue Sucralfate four times a day unless acute symptoms resolve 3. Continue zofran scheduled four times a day for two days then daily 4. Outpatient psych, GI and urology has been arranged 5. follow up with your PCP in a week 6. Continue Lexapro 10 mg daily We wish you well Davon Devi Current Hospital Diet Patient's current hospital diet: Regular Diet Discharge Diet Recommended Diet: Regular Diet Procedures Procedures Performed: EGD with bx Pending Studies Studies pending at discharge: no Medical Emergencies . Who to Call and When: Medical Emergencies: If at any time you feel your situation is an emergency, please call 911 immediately. . Non-Emergent Contact Non-Emergency issues call your: Primary Care Provider . . "Provider Documentation" section prepared by Michelle Devi. VTE Core Measure Inpt VTE Proph given/why not?: SCD's
--- NOTE | 2016-12-18 16:06 | Discharge Summary ---
Discharge Summary Date of Service Dec 18, 2016. (Michelle Devi MD) Discharge Summary Admission Date: Dec 17, 2016 at 17:53 Discharge Date: Dec 16, 2016 Discharge Disposition: Home Principal Diagnosis: superficial ulcer Problems/Secondary Diagnoses: (1) Anxiety and depression Status: Chronic (2) Chronic low back pain Status: Chronic (3) Langerhans cell histiocytosis of lung Status: Chronic (4) Peptic ulcer disease Status: Chronic (Michelle Devi MD) Medication Reconciliation New Medications: Omeprazole (Prilosec) 20 Mg Capcr 40 MG PO DAILY for 30 Days, #60 CAP Continued Medications: Dicyclomine HCl (Dicyclomine HCl) 10 Mg Cap 10 MG PO BID for 30 Days, #60 CAP Hydrocodone/Acetaminophen ([place] 10/325 Tab) 1 Tab Tab 1 TAB PO TID PRN for Pain, TAB Discontinued Medications: Pantoprazole (Pantoprazole Sodium) 40 Mg Tab 40 MG PO BID for 30 Days, #60 TAB Discharge Exam Patient states abdominal pain under good control and ready for d/c home Review of Systems: Constitutional: No fever Eyes: No worsening of vision ENT: No hearing loss Respiratory: No cough, No dyspnea at rest, No dyspnea on exertion, No shortness of breath, No sputum, No wheezing Cardiovascular: No chest pain Abdomen: + constipation, + nausea, + pain, No diarrhea, No vomiting Musculoskeletal: No joint pain, No muscle pain Genitourinary - Female: No dysuria, No hematuria Neurologic: No balance problems, No numbness/tingling, No weakness Psychiatric: + depression symptoms Endocrine: No fatigue Integumentary: No rash Physical Exam: General Appearance: no apparent distress Eyes: normal inspection ENT: normal ENT inspection Neck: supple Respiratory/Chest: normal breath sounds, no respiratory distress, no accessory muscle use Cardiovascular: regular rate, rhythm, no murmur Abdomen / GI: normal bowel sounds, soft, + tenderness (lower abdomen) Extremities: normal inspection, no calf tenderness Neurologic/Psychiatric: alert, oriented x 3 Skin: normal color, warm/dry, no rash Lymphatic: no adenopathy (Michelle Devi MD) Hospital Course This is a 31 yo f with a 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 She is narcotic-dependent and has presented multiple times with intractable lower abdominal pain, and intractable N/V which she has had for 2 days prior to admission. She was also suffering from hematuria which she states she will gets occasionally and will worsen when she strains. GI was consulted and an EGD was performed. It was noted she had a superficial ulcer and a biopsy was taken. Urology was also consulted for hematuria and recommendations were for outpt follow up. Prior to the initial discharge she had worsening abdominal pain and nausea and patient was admitted until pain was under good control with her home PO medications. Acute on chronic abdominal pain of unknown etiology; intractable N&V - Zofran for nausea joan q 6 h x 2 days then prn - protonix bid x 1 month then daily for three months - Sucralfate qid until symptoms are not as acute - GI consult - EGD- superficial ulcer with biopsy - Will follow up in outpt for results Depression - psych was consulted while in house as a psychogenic component to the pain was considered - Lexapro 10 mg started - outpt consult will be arranged Hematuria possibly secondary to nephrolithiasis - consult urology - follow up in outpt for possible cystoscopy - will be arranged hypomagnesemia, hypokalemia - Recommend a recheck of BMP and mg in outpt setting Narcotic dependence PDMP reviewed - approx one rx for narcotics/ month Tobacco abuse - continue to encourage d/c tobacco use Total Time Spent: Less than 30 minutes This includes examination of the patient, discharge planning, medication reconciliation, and communication with other providers. (Michelle Devi MD) Resident Physician Supervision Note: I interviewed and examined the patient. Discussed with [Marito] and agree with findings and plan as documented in the note. Any exceptions or clarifications are listed here: [None] Documented By: Felice Mc feeling better, not great but notes she feels well enough to go home (explored this extensively and she does feel that she's eating/drinking well enough to get home, feels at this point she'll do just as good or better -- explored childcare and it does sound like she'll have most of the responsibilities but she's OK w this) explained the slow course of getting better from PUD - that the next several days will likely be similar to now, slow improvement, measure improvement more in ~3 day intervals rather than day to day to be able to better pt skilled improvement. asked multiple ways yet again, and while she notes her doesn't help a lot at home, she clearly repeatedly denies any physical or emotional abuse and does feel safe at home (again reiterates that in her current state she feels she'll do just as well or better at home) vitals noted, see EMR. abd soft, (+) epigastric tenderness but better than before, no guarding no rebound PUD - ?stress as main culprit. GI doesn't believe ailyn plays a role - but she does have an appt set up w ailyn doc in [facility] (i reiterated importance of this) - outlined realistic expectations on recovery, when to worry on worsening, when to go to PCP vs GI vs ER. discussed meds at length. will also use zofran scheduled for another 2 days - explained risks/benefits of this - then will drop to prn. stable for home. answered all questions to the best of my ability. Total Time Spent: Greater than 30 minutes (Felice Mc, D.O.) Discharge Instructions Please refer to the electronic Patient Visit Report (Discharge Instructions) for additional information. (Michelle Devi MD)
[2016-12-18 16:14] VITALS: BP 116/78; PULSE 58; TEMP 37.2; O2SAT 96
[2016-12-18] MEDS ORDERED: PANT1TAB48 PO (16:22)
[2016-12-18] MEDS ORDERED: ONDA8TAB62 SL (16:22)
[2016-12-18] MEDS ORDERED: CRFL PO (16:22)
[2016-12-18] MEDS ORDERED: ESCITALOPRAM OXALATE 10 MG TAB PO SCH (21:00)
== END 2016-12-18 17:22 | disposition home or self-care (01) | DRG 384 ==
LOC: ENRESERVDT → ENRESERVTM → C.EDB 14:48 → C.MSW 23:28 → OBSVTOIN 12-17 17:53
PROVIDERS: ADMIT Internal Medicine; ATTEND Family Medicine
PROC: 0DB68ZX Excision of Stomach, Via Natural or Artificial Opening Endoscopic, Diagnostic (ICD-10-PCS; principal; 2016-12-16 14:06)
PROC: 0DB98ZX Excision of Duodenum, Via Natural or Artificial Opening Endoscopic, Diagnostic (ICD-10-PCS; principal; 2016-12-16 14:06)
DX: K25.9 Gastric ulcer, unspecified as acute or chronic, without hemorrhage or perforation (principal); F41.9 Anxiety disorder, unspecified; F32.9 Major depressive disorder, single episode, unspecified; M54.5 Low back pain; Z85.79 Personal history of other malignant neoplasms of lymphoid, hematopoietic and related tissues; F17.200 Nicotine dependence, unspecified, uncomplicated; N20.0 Calculus of kidney; R31.9 Hematuria, unspecified; E83.42 Hypomagnesemia; E87.6 Hypokalemia; G89.18 Other acute postprocedural pain; K21.9 Gastro-esophageal reflux disease without esophagitis; Z83.3 Family history of diabetes mellitus; Z84.1 Family history of disorders of kidney and ureter; Z82.49 Family history of ischemic heart disease and other diseases of the circulatory system; K44.9 Diaphragmatic hernia without obstruction or gangrene; F11.10 Opioid abuse, uncomplicated

== ENCOUNTER 2016-12-21 14:31 | Observation (INO) | payer OTHER ==
[~2016-12-21] VITALS: Ht 165.1 cm; Wt 65.1 kg
[~2016-12-21 14:31] MED LIST changes: +CRFL PO; -DFL100 PO; +ONDA8TAB62 SL; +PANT1TAB48 PO; -PRT40 PO
[2016-12-21 14:44] VITALS: BP 99/64; PULSE 97; TEMP 37.3; O2SAT 98
[2016-12-21] MEDS ORDERED: ACETAMINOPHEN 325 MG TAB PO PRN (15:00)
[2016-12-21] MEDS ORDERED: ONDANSETRON INJ 2 MG/ML 2 ML VIAL IV PRN (15:00)
[2016-12-21] MEDS ORDERED: PATIENT'S HEIGHT AND/OR WEIGHT NEEDED SCH (15:30)
[2016-12-21] MEDS ORDERED: MoRPHine SULFATE 2 MG/ML CARP IV PRN (15:30)
--- NOTE | 2016-12-21 15:48 | History and Physical ---
History & Physical Date & Time of Service: Dec 21, 2016 at 15:31 Chief Complaint: Intractable Nausea And Vomiting,Narcotic Withdraw Primary Care Physician: No Doctor, Assigned History of Present Illness Source: patient, parent (mom) Pt is a 31 yo female with a h/o Langerhan's histiocytosis who presents to [facility] as a direct transfer from [facility] for intractable N/V and diffuse abd pain for past 3 days. Pt was recently admitted at [facility] last week for similar presentation. Pt underwent endoscopy, shallow gastric ulcer noted and discharged with protonix and carafate. Pt states sx continued upon discharged and initially went to [facility] ER but preferred to be transferred here due to previous care. Pt states associated fevers, chills and denies any chest pain , shortness of breath, or urinary symptoms. Past Medical/Surgical History Medical Problems: (1) Anxiety and depression Status: Chronic (2) Chronic gastritis Status: Chronic (3) Chronic low back pain Status: Chronic (4) Duodenal ulcer disease Status: Chronic (5) Kidney stones Status: Resolved (6) Langerhans cell histiocytosis Status: Chronic (7) Langerhans cell histiocytosis of lung Status: Chronic (8) Peptic ulcer disease Status: Chronic (9) Reflux esophagitis Status: Chronic Surgical Problems: (1) H/O esophagogastroduodenoscopy Permanent Comment: 03/10/16 at [facility]- chronic gastritis, grade A reflux esophagitis, acute duodenitis with superficial ulceration Status: Chronic (2) History of section Status: Resolved (3) History of cholecystectomy Status: Resolved (4) History of lung biopsy Status: Chronic (5) History of tubal ligation Status: Resolved (6) S/P section Status: Chronic (7) S/P cholecystectomy Status: Chronic Family History Diabetes mellitus FATHER Hypertension Kidney disease Kidney stones Social History Smoking Status: Current Every Day Smoker Drug Use: none Marital Status: Housing status: lives with family Occupational Status: unemployed Allergies Coded Allergies: No Known Allergies (Unverified , 12/14/16) Home Medications Scheduled Dicyclomine HCl (Dicyclomine HCl), 10 MG PO BID Pantoprazole (Protonix), 1 TAB PO BID Sucralfate (Carafate), 10 ML PO QID Scheduled PRN Hydrocodone/Acetaminophen ([place] 10/325 Tab), 1 TAB PO TID PRN for Pain Ondansetron Odt (Zofran Odt), 8 MG SL Q6H PRN for Nausea Review of Systems Constitutional: + chills, + fever Eyes: No eye pain, No worsening of vision Respiratory: No cough, No sputum Cardiovascular: No chest pain, No edema, No orthopnea Abdomen: + diarrhea, + nausea, + pain, + vomiting Musculoskeletal: No joint pain, No muscle pain, No swelling Genitourinary - Female: No dysuria, No urinary frequency, No urinary incontinence, No urinary urgency Neurologic: No paralysis, No weakness Psychiatric: + anxiety, + depression symptoms Integumentary: No itch, No rash Physical Exam Vital Signs Date Time Temp Pulse Resp B/P Pulse Ox O2 Delivery O2 Flow Rate FiO2 12/21/16 14:44 37.3 97 17 99/64 98 Room Air General Appearance: WD/WN, + mild distress Head: normocephalic, atraumatic Eyes: PERRL, EOMI Neck: supple, no adenopathy Respiratory/Chest: lungs clear, normal breath sounds, no accessory muscle use Cardiovascular: no edema, no gallop Abdomen/GI: soft, + tenderness (in all quadrants) Back: normal inspection, no CVA tenderness Neurologic/Psych: alert, normal mood/affect, oriented x 3 Impression Assessment and Plan This is a 31 yo f with a 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 She is narcotic-dependent and has presented multiple times with intractable lower abdominal pain, and intractable N/V which she has had for 2 days prior to admission. Pt initially presented to [facility] but preferred to be transferred here. Acute on chronic abdominal pain of unknown etiology; intractable N&V - Observation status - Reviewed labs from [facility]. WBC 9, lipase 372, AST ALT unremarkable - No infectious etiology determined - Start on protonix IV BID and bentyl - GI consult - Keep NPO after MN Depression - Pt states was due to see OP counselor on discharge Microscopic Hematuria possibly secondary to nephrolithiasis -Prev CT abd/pelvis unremarkable, due to see urology as outpt, Hg stable Hypokalemia -Replace PRN, cont to monitor, K 3.0 in [facility] Narcotic dependence - On [place] Tobacco abuse - continue to encourage d/c tobacco use Pt is FULL CODE VTE Prophylaxis VTE Risk Assessment Done? Y/N: Yes Risk Level: Low
[2016-12-21] MEDS: ONDANSETRON INJ 2 MG/ML 2 ML VIAL IV PRN (15:54)
[2016-12-21] MEDS: SODIUM CHLORIDE 0.9% 1000ML 1,000 ML IV SCH (16:00)
[2016-12-21 16:15] VITALS: BP 99/64; PULSE 97; TEMP 37.3; Ht 165.1 cm; Wt 65.1 kg
[2016-12-21] MEDS ORDERED: IV FLUIDS COMPLETED PRN (16:15)
[2016-12-21] MEDS: MoRPHine SULFATE 2 MG/ML CARP IV PRN (17:05)
[2016-12-21] MEDS: POTASSIUM CHLR 10 MEQ / WTR 10 MEQ in PREMIXED WATER 100 ML IV SCH ×3 (17:09→21:55)
[2016-12-21] MEDS: DICYCLOMINE HCL 10 MG CAP PO SCH (20:10)
[2016-12-21] MEDS: MoRPHine SULFATE 4 MG/ML 1 ML CARP\\VIAL IV PRN (21:55)
[2016-12-21] MEDS: PANTOprazole INJ 40 MG in SYRINGE 0 ML IV SCH (21:55)
[2016-12-21] MEDS: hydrOXYzine HCL 25 MG TAB PO PRN (22:10)
[2016-12-21 22:36] LABS: BENZODIAZEPINE, URINE NEG (NEG); COCAINE,URINE NEG (NEG); PHENCYCLIDINE, URINE NEG (NEG)
[2016-12-21] MEDS: PROMETHAZINE HCL INJ 25 MG in SODIUM CHLORIDE 0.9% 50ML 50 ML IV PRN (23:50)
[2016-12-22] MEDS ORDERED: KETOROLAC TROMETHAMINE 15 MG/ML VIAL IV. STA (00:03)
[2016-12-22] MEDS ORDERED: NURSING VERBAL MED ORDER ONE (00:15)
[2016-12-22] MEDS: POTASSIUM CHLR 10 MEQ / WTR 10 MEQ in PREMIXED WATER 100 ML IV SCH (00:21)
[2016-12-22] MEDS: ONDANSETRON INJ 2 MG/ML 2 ML VIAL IV PRN ×2 (00:50→04:40)
[2016-12-22 00:57] VITALS: BP 144/84; PULSE 71; TEMP 36.8; O2SAT 98
[2016-12-22] MEDS: MoRPHine SULFATE 4 MG/ML 1 ML CARP\\VIAL IV PRN ×5 (01:41→20:21)
[2016-12-22] MEDS: SODIUM CHLORIDE 0.9% 1000ML 1,000 ML IV SCH ×3 (01:44→21:31)
[2016-12-22] MEDS: PROMETHAZINE HCL INJ 25 MG in SODIUM CHLORIDE 0.9% 50ML 50 ML IV PRN (05:59)
[2016-12-22 06:24] LABS: BASO % 0.1 %; BASO ABS # 0.01 K/uL (0-0.2); COMPLETE YES; EOS % 0.7 %; HEMATOCRIT 37.5 % (37-47); IG% 0.2 %; LYMPH % 16.3 %; LYMPH ABS # 1.35 K/uL (1.2-3.4); MEAN CELL VOLUME 86.2 fL (80-100); MEAN CORPUSCULAR HEMOGLOBIN 30.3 pg (25-34); MEAN CORPUSCULAR HGB CONC 35.2 g/dl (32-36); MONO % 5.6 %; NEUT % 77.1 %; PLATELET COUNT 258 K/uL (130-400); RED BLOOD COUNT 4.35 M/uL (4.2-5.4); WHITE BLOOD COUNT 8.28 K/uL (4.8-10.8)
[2016-12-22 06:52] LABS: BUN/CREATININE RATIO 8.9 (10-20); CALCIUM 8.7 mg/dl (8.5-10.1); CREATININE 0.62 mg/dl (0.60-1.20); POTASSIUM 3.6 mmol/L (3.5-5.1)
[2016-12-22 06:55] LABS: ALB/GLOB RATIO 1.2 (0.9-2)
[2016-12-22 07:56] VITALS: BP 146/77; PULSE 70; TEMP 36.8; O2SAT 99
[2016-12-22] MEDS: DICYCLOMINE HCL 10 MG CAP PO SCH ×2 (08:00→21:31)
[2016-12-22] MEDS: PANTOprazole INJ 40 MG in SYRINGE 0 ML IV SCH ×2 (08:37→21:32)
--- NOTE | 2016-12-22 12:51 | Hospitalist Progress Note ---
Hospitalist Progress Note Date of Service Dec 22, 2016. (Gypsy Zamorano PA-C) Subjective Pt evaluation today including: conversation w/ patient, physical exam, chart review, lab review, review of studies, review of inpatient medication list Pain: abdominal PO Intake: poor Voiding: no voiding problems The patient was seen and examined this morning. Pt reports still having abdominal pain. She reports having ongoing nausea and vomiting for several days , last time she vomited was early this morning. She denies seeing any blood. Last bowel movement was this morning, semi-formed, brown, no blood. She denies pain with urination. She reports feeling depressed with low mood, poor sleep with racing thoughts prior to going to sleep, anhedonia, and feels upset over small things that normally wouldn't upset her. She feels that anxiety has also been worse recently. Pt is a stay at home mom, 3 children, and reports not being at home with her children causes her to become even more anxious. Constitutional: No chills, No fever Eyes: No diplopia, No redness ENT: No dental problems, No nasal symptoms Respiratory: No cough, No shortness of breath, No wheezing Cardiovascular: No chest pain, No palpitations Abdomen: + nausea, + pain, + vomiting, No constipation, No diarrhea Musculoskeletal: No joint pain, No muscle pain, No swelling Female : No dysuria Neurologic: No numbness/tingling, No weakness Psychiatric: + anxiety, + depression symptoms Skin: No itch, No rash (Gypsy Zamorano PA-C) Objective Vital Signs Date Time Temp Pulse Resp B/P Pulse Ox O2 Delivery O2 Flow Rate FiO2 12/22/16 08:00 Room Air 12/22/16 07:56 36.8 70 16 146/77 99 Room Air 12/22/16 00:57 36.8 71 16 144/84 98 Room Air 12/21/16 23:50 Room Air 12/21/16 16:15 37.3 97 17 99/64 Room Air 12/21/16 16:00 Room Air 12/21/16 14:44 37.3 97 17 99/64 98 Room Air (Gypsy Zamorano PA-C) Physical Exam General Appearance: WD/WN, no apparent distress, + thin Eyes: PERRL, EOMI ENT: hearing grossly normal, pharynx normal Neck: supple, no JVD Respiratory/Chest: lungs clear, normal breath sounds, no respiratory distress, no accessory muscle use Cardiovascular: regular rate, rhythm, no edema, no JVD, no murmur Abdomen: normal bowel sounds, soft, no organomegaly, + pertinent finding (mild tenderness with palpation suprapubically) Extremities: non-tender, no pedal edema, no calf tenderness Neurologic/Psychiatric: alert, oriented x 3 Skin: normal color, warm/dry (Gypsy Zamorano, JEWELL) Laboratory Results Last 24 Hours Test 12/21/16 17:13 12/21/16 22:00 12/22/16 05:47 Magnesium Level 2.1 mg/dl Urine Opiates Screen POS Urine Methadone, Qualitative NEG Urine Barbiturates NEG Urine Phencyclidine (PCP) Level NEG Ur Amphetamine/Methamphetamine NEG MDMA (Ecstasy) Screen NEG Urine Benzodiazepines Screen NEG Urine Cocaine Metabolite NEG Urine Marijuana (THC) NEG White Blood Count 8.28 K/uL Red Blood Count 4.35 M/uL Hemoglobin 13.2 g/dL Hematocrit 37.5 % Mean Corpuscular Volume 86.2 fL Mean Corpuscular Hemoglobin 30.3 pg Mean Corpuscular Hemoglobin Concent 35.2 g/dl Platelet Count 258 K/uL Mean Platelet Volume 11.0 fL Neutrophils (%) (Auto) 77.1 % Lymphocytes (%) (Auto) 16.3 % Monocytes (%) (Auto) 5.6 % Eosinophils (%) (Auto) 0.7 % Basophils (%) (Auto) 0.1 % Neutrophils # (Auto) 6.38 K/uL Lymphocytes # (Auto) 1.35 K/uL Monocytes # (Auto) 0.46 K/uL Eosinophils # (Auto) 0.06 K/uL Basophils # (Auto) 0.01 K/uL RDW Standard Deviation 41.2 fL RDW Coefficient of Variation 12.9 % Immature Granulocyte % (Auto) 0.2 % Immature Granulocyte # (Auto) 0.02 K/uL Sodium Level 138 mmol/L Potassium Level 3.6 mmol/L Chloride Level 104 mmol/L Carbon Dioxide Level 24 mmol/L Anion Gap 10.0 mmol/L Blood Urea Nitrogen 6 mg/dl Creatinine 0.62 mg/dl Est Creatinine Clear Calc Drug Dose 120.5 ml/min Estimated GFR () 141.2 Estimated GFR (Non- 121.9 BUN/Creatinine Ratio 8.9 Random Glucose 108 mg/dl Calcium Level 8.7 mg/dl Total Bilirubin 0.4 mg/dl Aspartate Amino Transf (AST/SGOT) 12 U/L Alanine Aminotransferase (ALT/SGPT) 38 U/L Alkaline Phosphatase 54 U/L Total Protein 6.8 gm/dl Albumin 3.7 gm/dl Globulin 3.1 gm/dl Albumin/Globulin Ratio 1.2 (Gypsy Zamorano, JEWELL) Assessment and Plan This is a 31 yo f with a 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 She is narcotic-dependent and has presented multiple times with intractable lower abdominal pain, and intractable N/V which she has had for 2 days prior to admission. Pt initially presented to [place] [facility] but preferred to be transferred here. Acute on chronic abdominal pain of unknown etiology; intractable N&V - Observation status - Reviewed labs from [place]. WBC 9, lipase 372, AST ALT unremarkable - No infectious etiology determined - Start on protonix IV BID and bentyl - GI consult - Allow for clear liquid diet as unlikely procedure will happen today. Can make NPO after midnight. - screen as it was not done on admission - Has a hs of ovarian cyst which could cause increased pelvic pain. On exam- tender to palpation in the suprapubic region only. Depression/Anxiety - This is likely a contributing factor to patient's chronic abdominal pain. Pt previously tried Celexa and Zoloft, patient slept for her. Patient reports modest improvement in mood although she feels that she became more agitated and irritable while taking them. - Patient reports having anhedonia, prior to falling asleep, poor sleep overall recently. She cannot determine any social stressors that may attributed to these symptoms currently. - Pt states was due to see OP counselor on discharge, but did not to see this person. Microscopic Hematuria possibly secondary to nephrolithiasis -Prev CT abd/pelvis unremarkable, due to see urology as outpt, Hg stable Hypokalemia -Replace PRN, cont to monitor, K 3.0 in [place] [facility] Narcotic dependence - On [place] - Discussion was held with the patient narcotic use, patient is made aware she will not be given narcotic medications on discharge - Attempt to titrate off morphine IV today Tobacco abuse - continue to encourage d/c tobacco use - Nicotine patch ordered at 14 mcg, pt recently reduced smoking from 1 ppd to 1/ 2 ppd a week ago. CODE STATUS : FULL CODE Disposition: D/c when medically stable. Likely within 1 day (Gypsy Zamorano, PA-C) I agree with PA assessment and plan and have seen and examined pt myself Resting in bed comfortably upon arrival to room then acting uncomfortable when seeing me States tenderness worse in right lower quadrant Labs WNL ?psych component Asking for narcotics (Ryne Alvares, D.O.)
[2016-12-22 14:05] LABS: PREG INTERNAL NEGATIVE QC NEG CLEAR BACKGROUND; PREG INTERNAL POSITIVE QC POS CONTROL LINE
[2016-12-22] MEDS: NICOTINE 14 MG/24 HR TDSY TD SCH ×2 (14:20→19:00)
[2016-12-22 16:15] VITALS: BP 97/64; PULSE 100; TEMP 37; O2SAT 98
--- NOTE | 2016-12-22 18:15 | GASTROINTESTINAL CONSULTATION ---
DATE OF CONSULTATION: 12/22/2016 REASON FOR EVALUATION: Recurrent nausea, vomiting, and abdominal pain. HISTORY OF PRESENT ILLNESS: The patient is a 31-year-old who I had seen in August and then a couple of weeks ago. Each time she presented with epigastric pain, nausea, and vomiting. The patient has Langerhans histiocytosis predominantly involving the lungs, but we were not able to find a specific cause for her symptoms during any of her hospitalizations. She has had a cholecystectomy in the past as well as tubal ligation and 3 C-sections. She recently had a CAT scan of the abdomen which did not show any specific pathology and an EGD last week which just showed a couple of erosions in the gastric antrum, but no specific pathology to explain her recurrent symptoms over several months. Previous stool tests for rotavirus, C. diff, fecal leukocytes, bacterial pathogens, Giardia and H. pylori were all negative. Test for celiac disease were also normal. The patient does have a history of anxiety and depression and is on chronic pain medication which I think her major contributing factor to her current symptoms. PAST MEDICAL HISTORY: Langerhans histiocytosis predominantly involving lungs, anxiety, chronic back pain, kidney stones, cholecystectomy, tubal ligation, 3 C-sections. MEDICATIONS: Dicyclomine, pantoprazole, and [place]. ALLERGIES: None. FAMILY HISTORY: Diabetes, hypertension, kidney stones. SOCIAL HISTORY: The patient is . She is a homemaker. She has 3 children. Smokes daily. REVIEW OF SYSTEMS: Currently, the patient is hungry and her abdominal pain is improving. PHYSICAL EXAMINATION: GENERAL: The patient appears in no acute distress. VITAL SIGNS: Normal. She is afebrile. ABDOMEN: Shows some central abdominal stretch duffy, low transverse scar. There is a tattoo of a star in the right lower quadrant. There are no masses, tenderness, or hepatosplenomegaly. IMPRESSION: The patient has recurrent abdominal pain, nausea, and vomiting with no obvious GI pathology on multiple tests. Her laboratory tests were also normal. I suspect strongly that her symptoms have to do with her pain medication and anxiety and that if we can reduce her pain pill intake and treat her anxiety and depression then I think her symptoms should rosalind. I do not plan any further GI intervention at this time and hopefully with psychiatric intervention and pain control she will improve over time.
[2016-12-22] MEDS: hydrOXYzine HCL 25 MG TAB PO PRN (20:38)
[2016-12-23] VITALS: BP 95/55; PULSE 63; TEMP 37; O2SAT 99
[2016-12-23] MEDS: MoRPHine SULFATE 2 MG/ML CARP IV PRN ×3 (00:52→10:15)
[2016-12-23 05:42] VITALS: BP 107/71; PULSE 61
[2016-12-23] MEDS: SODIUM CHLORIDE 0.9% 1000ML 1,000 ML IV SCH (06:22)
[2016-12-23 07:05] LABS: BASO % 0.2 %; BASO ABS # 0.01 K/uL (0-0.2); COMPLETE YES; EOS % 3.8 %; HEMATOCRIT 34.8 % (37-47); IG% 0.2 %; LYMPH % 41.5 %; MEAN CELL VOLUME 87.4 fL (80-100); MEAN CORPUSCULAR HEMOGLOBIN 30.2 pg (25-34); MEAN CORPUSCULAR HGB CONC 34.5 g/dl (32-36); MEAN PLATELET VOLUME 10.2 fL (7.4-10.4); MONO % 8.7 %; NEUT % 45.6 %; PLATELET COUNT 205 K/uL (130-400); RED BLOOD COUNT 3.98 M/uL (4.2-5.4); WHITE BLOOD COUNT 5.06 K/uL (4.8-10.8)
[2016-12-23 07:42] LABS: BUN/CREATININE RATIO 4.7 (10-20); CREATININE 0.76 mg/dl (0.60-1.20); POTASSIUM 3.5 mmol/L (3.5-5.1)
[2016-12-23 07:46] LABS: ALB/GLOB RATIO 1.2 (0.9-2)
[2016-12-23 08:52] VITALS: BP 91/61; PULSE 60; TEMP 37.1; O2SAT 99
[2016-12-23] MEDS: DICYCLOMINE HCL 10 MG CAP PO SCH (09:16)
[2016-12-23] MEDS: NICOTINE 14 MG/24 HR TDSY TD SCH (09:16)
[2016-12-23] MEDS: PANTOprazole INJ 40 MG in SYRINGE 0 ML IV SCH (09:29)
[2016-12-23 10:12] VITALS: BP 100/68; PULSE 69
--- NOTE | 2016-12-23 11:44 | Discharge Instructions ---
Discharge Instructions Date of Service Dec 23, 2016. (Gypsy Zamorano PA-C) Admission Reason for Admission: Intractable Nausea And Vomiting,Narcotic Withdraw (Gypsy Zamoarno PA-C) Discharge Discharge Diagnosis / Problem: Abdominal Pain, Depression/Anxiety (Gypsy Zamorano PA-C) Discharge Goals Goal(s): Decrease discomfort, Improve function, Increase independence, Improve disease control (Gypsy Zamorano PA-C) Activity Recommendations Activity Limitations: resume your previous activity Lifting Limitations: gradually increase as tolerated Exercise/Sports Limitations: gradually increase as tolerated May Resume Sexual Activity: when tolerated Shower/Bathe: no limitations Driving or Machine Use: no limitations . (Gypsy Zamorano PA-C) Instructions / Follow-Up Instructions / Follow-Up You were admitted to [facility] with abdominal pain and diagnosed with mild gastritis. During your stay here you had some significant depression and anxiety concerns, and this likely has played a role in your abdominal pain. During your stay here you were treated with intravenous medications for pain , nausea, and fluids. Your symptoms improved. You were also seen by Gastroenterology; you did not need further studies or imaging. You were started on a medication called cholestin, this is a bile acid sequestrant, it helps decrease the amount of bile in your stomach. Cholestin 1 gm daily, x 3 days. If tolerating this medication well ( decreased nausea, vomiting, etc) , increase the dosage to twice daily. You have been started on a new medication for depression and anxiety: Lexapro 5 mg, take 1 tablet daily x 1 week. Then increase your dose to 10 mg , 1 tablet daily until your PCP follow up appointment in 2-3 weeks. Your PCP at this time will determine if you need any dose adjustments. Please contact your PCP if you experience and of the following adverse effects: : headache, nausea, vomiting, diarrhea, constipation, sexual dysfunction, or insomnia (trouble sleeping). Follow up with your Primary Care Provider within 2-3 weeks. Keep your counselor appointment which is scheduled for mid December. (Gypsy Zamorano PA-C) Current Hospital Diet Patient's current hospital diet: Low Fiber Diet (Gypsy Zamorano PA-C) Discharge Diet Recommended Diet: Regular Diet (Gypsy Zamorano PA-C) Procedures Procedures Performed: None (Gypsy Zamorano PA-C) Pending Studies Studies pending at discharge: no (Gypsy Zamorano PA-C) Medical Emergencies . Who to Call and When: Medical Emergencies: If at any time you feel your situation is an emergency, please call 911 immediately. . (Gypsy Zamorano PA-C) Non-Emergent Contact Non-Emergency issues call your: Primary Care Provider Call Non-Emergent contact if: temperature is above 100.5, your pain is not controlled, your pain is unusual for you, your pain is concerning you, you have any medication questions . (Gypsy Zamorano PA-C) . "Provider Documentation" section prepared by Eloise Zamorano. (Gypsy Zamorano PA-C) Attending Attestation: Pt seen and care plan d/w GASTON Zamorano on day of discharge; I agree with her discharge instructions as outlined. Artemio Steinberg MD (Artemio Steinberg MD) VTE Core Measure Inpt VTE Proph given/why not?: Alejandro Self, SCD's (Gypsy Zamorano PA-C)
--- NOTE | 2016-12-23 12:15 | Discharge Summary ---
Discharge Summary Date of Service Dec 23, 2016. (Gypsy Zamorano PA-C) Discharge Summary Admission Date: Dec 21, 2016 at 14:31 Discharge Date: Dec 23, 2016 Discharge Disposition: Home Principal Diagnosis: abdominal pain/anxiety/depression Problems/Secondary Diagnoses: (1) Anxiety and depression Status: Chronic (2) Chronic low back pain Status: Chronic (3) Langerhans cell histiocytosis of lung Status: Chronic (4) Peptic ulcer disease Status: Chronic Procedures: None Consultations: GI (Gypsy Zamorano PA-C) Discharge Exam The patient was seen and examined this morning. Patient reports feeling well. He ate breakfast this morning without difficulty. Patient reports she has not vomited since yesterday, and nausea has resolved. She denies having any acute abdominal pain while at bedside, although she just received a dose of morphine. Patient reports she did not require any pain medication overnight. She is having bowel movements which are semi-formed. Denies loose or watery bowel movements, blood, constipation, indigestion. Session was held with the patient regarding starting of antidepressant, she is agreeable to this. Patient previously received 2 antidepressants from her PCP who she reports is willing to follow her as an outpatient with start of Celexa. Plan is to start Celexa at 5 mg to decrease the risk of side effects/adverse effects, and have her increase after 1 week to 10 mg. Side effects and adverse effects were discussed with the patient, and all her questions and concerns were answered. ROS: Constitutional: No fever, chills, sweats, fatigue or weakness Eyes: No diplopia, no changes in vision ENT: No sore throat, tinnitus, or trouble swallowing Respiratory: No shortness of breath, No dyspnea at rest or on exertion, no cough or sputum Cardiovascular: No chest pain, palpitations, or flutter Abdomen: No pain, No constipation, No diarrhea, No nausea, No vomiting Musculoskeletal: No calf pain, No joint pain, No swelling Genitourinary : No dysuria or urinary frequency, No hematuria Neurologic: No numbness/tingling, no difficulty with ambulation, no sensory or motor deficits Psychiatric: No depression or anxiety symptoms Endocrine: No fatigue, No weight changes Integumentary: No itch, No rash Physical exam General: awake, alert, no apparent distress Head: Normocephalic, atraumatic ENT: PERRL, EOMI, no pharyngeal exudate, mucous membranes moist Chest: Clear to auscultation, on room air, no adventitious breath sounds Cardiac: Regular rate and rhythm, no murmur, no JVD, normal peripheral pulses, good capillary refill Abdominal: NABS x 4 quadrants, soft, nontender to palpation, no rebound, guarding or tenderness Extremities: Normal inspection, no peripheral edema or erythema, calfs nontender to palpation Psych: Normal mood and affect Neuro: AAO x 3, affect appears brighter today (Gypsy Zamorano PA-C) Hospital Course H&P per Dr. Derek Matthews M.D. History of Present Illness Source: patient, parent (mom) Pt is a 31 yo female with a h/o Langerhan's histiocytosis who presents to [facility] as a direct transfer from [place] for intractable N/V and diffuse abd pain for past 3 days. Pt was recently admitted at [facility] last week for similar presentation. Pt underwent endoscopy, shallow gastric ulcer noted and discharged with protonix and carafate. Pt states sx continued upon discharged and initially went to [place] ER but preferred to be transferred here due to previous care. Pt states associated fevers, chills and denies any chest pain , shortness of breath, or urinary symptoms. 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 She is narcotic-dependent and has presented multiple times with intractable lower abdominal pain, and intractable N/V which she has had for 2 days prior to admission. Pt initially presented to [place] [facility] but preferred to be transferred here. Gastroenterology saw the patient and did not feel that further workup with imaging studies and scopes were indicated. She was hydrated with IV fluids , nausea improved with antiemetics and pain improved with IV pain medication. Symptoms improved. The patient was able to tolerate a regular diet prior to discharge. Depression and anxiety are definitely playing a role in the patient' s chronic abdominal pain. Patient was started on Celexa 5 mg a time of discharge with instructions as noted in discharge instructions. Specific instructions including adverse reactions and side effects were discussed with the patient, and all her concerns and questions were answered. Follow-up with family physician within 2-3 weeks. Follow-up with counseling appointment in mid December as already scheduled. Acute on chronic abdominal pain of unknown etiology; intractable N&V - Observation status - Reviewed labs from [place]. WBC 9, lipase 372, AST ALT unremarkable - No infectious etiology determined - Start on protonix IV BID and bentyl - GI consulted- no further workup as the patient had negative studies completed during last admission, 2 weeks ago - screen negative - Has a hx of ovarian cyst which could cause increased pelvic pain. On exam- tender to palpation in the suprapubic region only. Depression/Anxiety - This is likely a contributing factor to patient's chronic abdominal pain. Pt previously tried Celexa and Zoloft which did not improve her depressed mood or anxiety, pt may have tried other medications but cannot recall the names of these. Patient reports that she became more agitated and irritable while taking them. - We'll start the patient on Lexapro 5 mg 1 week, then will increase to 10 mg daily after that. See PCP within 2-3 weeks to determine if dose adjustment is needed. Side effects and adverse reactions were discussed with the patient. - Patient reports having anhedonia, prior to falling asleep, poor sleep overall recently. She cannot determine any social stressors that may attributed to these symptoms currently. - Pt states was due to see OP counselor on discharge, but did not to see this person. Microscopic Hematuria possibly secondary to nephrolithiasis - Prev CT abd/pelvis unremarkable, due to see urology as outpt, Hg stable Hypokalemia - Replace PRN, cont to monitor, K 3.0 in [place] [facility] Narcotic dependence - On [place] - Discussion was held with the patient narcotic use, patient is made aware she will not be given narcotic medications on discharge - dc IV morphine today Tobacco abuse - continue to encourage d/c tobacco use - Nicotine patch ordered at 14 mcg, pt recently reduced smoking from 1 ppd to 1/ 2 ppd a week ago. CODE STATUS : FULL CODE Disposition: D/c today. Total Time Spent: Greater than 30 minutes This includes examination of the patient, discharge planning, medication reconciliation, and communication with other providers. (Gypsy Zamorano PA-C) Attending Attestation & Discharge Note: Pt seen/examined, chart reviewed, and care plan d/w GASTON Zamorano on day of discharge. I agree w/ the stuart components of her discharge summary. 31yo female who presented with nausea, emesis, and abdominal pain. Her symptoms gradually abated during her hospital stay. She was seen in consult by Dr. Mono Francisco, [facility], who felt that many of her symptoms were related to chronic narcotic usage and anxiety. Other possibility is that of bile excess in the setting of her post-cholecystectomy state. She was agreeable to starting SSRI in the event her GI symptoms were stemming from her anxiety. We discussed trying to limit narcotic use. A trial of colestipol was also encouraged at time of discharge. Discharge exam: gen - NAD mouth - MMM heart - RRR, s1, s2 lungs - CTA b/l abd - soft, NT, ND, BS+, no HSM ext - no edema She will follow-up with her PCP as well as [facility] after discharge. Artemio Steinberg MD (Artemio Steinberg MD) Discharge Instructions Please refer to the electronic Patient Visit Report (Discharge Instructions) for additional information. (Gypsy Zamorano PA-C) Follow-Up Follow up with your Primary Care Provider within 2-3 weeks. (Gypsy Zamorano PA-C) Additional Copies To Mono Francisco M.D.; Teo Luz D.O.
[2016-12-23] MEDS ORDERED: NCDT14 TD (12:26)
[2016-12-23] MEDS ORDERED: CITA10TA8 PO (12:26)
[2016-12-23 12:38] VITALS: BP 100/68; PULSE 69; TEMP 37.1; O2SAT 99
[2016-12-23] MEDS ORDERED: [UNRECOGNIZED DRUG - CODE] PO (14:05)
[2016-12-23] MEDS ORDERED: ESCI1TAB9 PO (14:33)
[2016-12-23] MEDS ORDERED: ESCI1TAB6 PO (14:33)
[2016-12-24 09:28] LABS: COD UR NEGATIVE NG/ML (CUTOFF=50); HYDROCOD UR NEGATIVE NG/ML (CUTOFF=50); HYDROMOR UR 56 NG/ML (CUTOFF=50); MORPHINE UR 568 NG/ML (CUTOFF=50); NORHYDROCODONE CONF UR 299 NG/ML (CUTOFF=50); OXYMORPH UR NEGATIVE NG/ML (CUTOFF=50)
== END 2016-12-23 14:43 | disposition home or self-care (01) ==
LOC: C.MS4W 14:31
PROVIDERS: ADMIT Internal Medicine; ATTEND Internal Medicine
DX: R10.9 Unspecified abdominal pain (principal); F41.9 Anxiety disorder, unspecified; F32.9 Major depressive disorder, single episode, unspecified; R11.2 Nausea with vomiting, unspecified; R31.29 Other microscopic hematuria; E87.6 Hypokalemia; F11.20 Opioid dependence, uncomplicated; F17.210 Nicotine dependence, cigarettes, uncomplicated